=== PATIENT | male | born 1945 | race Caucasian/White ===

== ENCOUNTER → 2017-01-12 | Outpatient (CLI) | payer MEDICARE ==
--- NOTE | 2017-01-12 12:23 | CARD ---
APPROVED REPORT EXAM: Two-dimensional and M-mode echocardiogram with Doppler and color Doppler. Other Information Quality : GoodHR: 55bpm Rhythm : Bradycardia INDICATION Pre-Op Murmur RISK FACTORS Obesity 2D DIMENSIONS RVDd3.6 (2.9-3.5cm)Left Atrium(2D)4.2 (1.6-4.0cm) IVSd1.3 (0.7-1.1cm)Aortic Root(2D)3.1 (2.0-3.7cm) LVDd4.6 (3.9-5.9cm)LVOT Diameter2.6 (1.8-2.4cm) PWd1.4 (0.7-1.1cm)LVDs3.2 (2.5-4.0cm) FS (%) 30.9 %SV58.0 ml LVEF(%)58.6 (>50%) Aortic Valve AoV Peak Marty.249.1cm/sAoV VTI65.8cm AO Peak GR.24.8mmHgLVOT Peak Marty.92.0cm/s AO Mean GR.14mmHgAVA (VMAX)1.91cm2 AI P 1/2 Csnw688ku Mitral Valve MV E Sdkhgupj019.1cm/sMV DECEL EEVD719jw MV A Evmzdukt898.4cm/sE/A Ratio0.9 MV A Gihaqvpp977ye Pulmonary Valve PV Peak Hoxyyzyp66.0cm/s Tricuspid Valve TR P. Lutxabsu398wc/sTR Peak Gr.28mmHg Pulmonary Vein S1 Imdcnjuc36.6cm/sD2 Rpeaywiy31.4cm/s PVa ngbaebqt27nsxt LEFT VENTRICLE The left ventricle is normal size. There is mild concentric left ventricular hypertrophy. The left ve ntricular systolic function is normal. The Ejection Fraction is 60-65%. There is normal LV segmental wall motion. Transmitral Doppler flow pattern is Grade I-abnormal relaxation pattern. RIGHT VENTRICLE The right ventricle is normal size. There is normal right ventricular wall thickness. The right ventr icular systolic function is normal. ATRIA The left atrium size is normal. The right atrium size is normal. The interatrial septum is intact wit h no evidence for an atrial septal defect or patent foramen ovale as noted on 2-D or Doppler imaging. AORTIC VALVE The aortic valve is moderately sclerotic. The aortic valve is trileaflet. Doppler and Color Flow reve aled mild aortic regurgitation. There is borderline valvular aortic stenosis. MITRAL VALVE Mitral annular calcification is mild. The mitral valve leaflets are thickened. There is no evidence o f mitral valve prolapse. There is no mitral valve stenosis. Doppler and Color Flow revealed mild mitr al regurgitation. TRICUSPID VALVE Doppler and Color Flow revealed mild tricuspid regurgitation. The pulmonary artery systolic pressure is estimated at 31 mmHg. There is mild pulmonary hypertension. PULMONIC VALVE The pulmonary valve is not well visualized but appears to open adequately. Doppler and Color Flow rev ealed mild pulmonic valvular regurgitation. There is no pulmonic valvular stenosis by spectral Dopple r. GREAT VESSELS The aortic root is normal in size. The ascending aorta is normal in size. The pulmonary artery is nor mal. The IVC is normal in size and collapses >50% with inspiration. PERICARDIAL EFFUSION There is no evidence of significant pericardial effusion. Critical Notification Critical Value: No <Conclusion> The left ventricular systolic function is normal. The Ejection Fraction is 60-65%. There is normal LV segmental wall motion. Mild aortic regurgitation. Mild mitral regurgitation. Mild tricuspid regurgitation. The pulmonary artery systolic pressure is estimated at 31 mmHg. There is no evidence of significant pericardial effusion.
== END | disposition home or self-care (01) ==
LOC: ECHO 07:47
PROVIDERS: ATTEND Internal Medicine Cardiovascular Disease
DX: Z01.818 Encounter for other preprocedural examination (principal); I35.1 Nonrheumatic aortic (valve) insufficiency; I07.1 Rheumatic tricuspid insufficiency; I34.0 Nonrheumatic mitral (valve) insufficiency
CPT/HCPCS: 93306

== ENCOUNTER → 2019-01-21 | Outpatient (CLI) | payer MEDICARE ==
--- NOTE | 2019-01-21 09:39 | CARD ---
MR#: [id number] Date of Study: 01/21/2019 Ordering Physician: MATTEO GREGORIO, Referring Physician: MATTEO GREGORIO, Tech: Laure Victoria ROSALINA APPROVED REPORT EXAM: Two-dimensional and M-mode echocardiogram with Doppler and color Doppler. Other Information Quality : AverageHR: 53bpm Rhythm : Bradycardia INDICATION Murmur 2D DIMENSIONS RVDd3.6 (2.9-3.5cm)Left Atrium(2D)4.2 (1.6-4.0cm) IVSd1.5 (0.7-1.1cm)Aortic Root(2D)3.3 (2.0-3.7cm) LVDd4.9 (3.9-5.9cm)LVOT Diameter2.2 (1.8-2.4cm) PWd1.3 (0.7-1.1cm)LVDs2.6 (2.5-4.0cm) FS (%) 46.7 %SV86.7 ml LVEF(%)78.0 (>50%) M-Mode DIMENSIONS Left Atrium(MM)4.61 (2.5-4.0cm)Aortic Root3.21 (2.2-3.7cm) Aortic Valve AoV Peak Marty.276.4cm/sAoV VTI75.7cm AO Peak GR.30.6mmHgLVOT Peak Marty.82.2cm/s AO Mean GR.17mmHgAVA (VMAX)1.10cm2 DANY (VTI)1.38tp0WN P 1/2 Cxxk388tr Mitral Valve MV E Penojjfp30.2cm/sMV DECEL SCKI740ki MV A Asiovhxm528.2cm/sE/A Ratio0.9 Pulmonary Valve PV Peak Hjwmvzxj86.2cm/s Tricuspid Valve TR P. Oryfuoaa173xz/sRAP ZLXGKHEF1lyYs TR Peak Gr.17ejZaSYEV47reTb Pulmonary Vein S1 Rnkkvitj62.2cm/sD2 Hukrheqy47.0cm/s PVa ydkwmsrt911tjay LEFT VENTRICLE The left ventricle is normal size. There is mild to moderate concentric left ventricular hypertrophy. The left ventricular systolic function is normal. The Ejection Fraction is 65-70%. There is normal L V segmental wall motion. Transmitral Doppler flow pattern is Grade I-abnormal relaxation pattern. RIGHT VENTRICLE The right ventricle is borderline dilated. There is normal right ventricular wall thickness. The righ t ventricular systolic function is normal. ATRIA The left atrium is mildly dilated. The right atrium size is normal. The interatrial septum is intact with no evidence for an atrial septal defect or patent foramen ovale as noted on 2-D or Doppler imagi ng. AORTIC VALVE The aortic valve is trileaflet. The aortic valve is moderately calcified. Doppler and Color Flow reve aled mild aortic regurgitation. There is mild to moderate valvular aortic stenosis. Calculated aortic valve area is 1.3 cm2 with maximum pressure gradient of 31 mmHg and mean pressure gradient of 17 mmH g. MITRAL VALVE The mitral valve is normal in structure and function. There is no evidence of mitral valve prolapse. There is no mitral valve stenosis. Doppler and Color-flow revealed mild mitral regurgitation. TRICUSPID VALVE The tricuspid valve is normal in structure and function. Doppler and Color Flow revealed trace tricus pid regurgitation. The PA pressure was estimated at 33 mmHg. There is no tricuspid valve prolapse or vegetation. There is no tricuspid valve stenosis. PULMONIC VALVE The pulmonic valve is not well visualized. GREAT VESSELS The aortic root is normal in size. The ascending aorta is normal in size. The IVC is normal in size a nd collapses >50% with inspiration. PERICARDIAL EFFUSION There is no evidence of significant pericardial effusion. Critical Notification Critical Value: No <Conclusion> The left ventricular systolic function is normal. The Ejection Fraction is 65-70%. There is normal LV segmental wall motion. Transmitral Doppler flow pattern is Grade I-abnormal relaxation pattern. Mild to moderate valvular aortic stenosis with mean pressure gradient of 17 mmHg. Mild aortic regurgitation. Mild mitral regurgitation. Trace tricuspid regurgitation. The PA pressure was estimated at 33 mmHg. There is no evidence of significant pericardial effusion. Signed by : José Miguel Gatica, Electronically Approved : 01/21/2019 09:39:30
== END | disposition home or self-care (01) ==
LOC: ECHO 08:37
PROVIDERS: ATTEND Internal Medicine Cardiovascular Disease
DX: M79.89 Other specified soft tissue disorders (principal); I08.0 Rheumatic disorders of both mitral and aortic valves
CPT/HCPCS: 93306

== ENCOUNTER → 2019-01-22 | Outpatient (CLI) | payer MEDICARE, BC ==
--- NOTE | 2019-01-28 09:52 | RAD ---
MR#: [id number] Date of Study: 01/22/2019 Ordering Physician: MATTEO GREGORIO, Referring Physician: MATTEO GREGORIO, Tech: Fransico Bravo MBA, RDMS, RVT, RDCS, RTR APPROVED REPORT Patient Location: OUT-PATIENT Indications AAA Duplex Results A/PTransverseLongitudinal Proximal Aorta 2.6cm2.3cm Mid Aorta 2.6cm1.7cm Distal Aorta 2.4cm1.2cm Rt. Common Iliac Artery1.8cm Lt. Common Iliac Artery 1.2cm Findings Grayscale images of the abdominal aorta revealed grossly normal measurements as noted above. No signi ficant aneurysmal dilatation or occlusive plaque is noted. The bilateral common iliac arteries are not well visualized but there appears to be mild dilation of the right common iliac at approximately 1.8 cm. Critical Notification Critical Value: No <Conclusion> 1. No evidence of abdominal aortic aneurysm 2. Mild right common iliac artery dilation and 1.8 cm. Signed by : Temo Sharp, Electronically Approved : 01/28/2019 09:52:05
--- NOTE | 2019-01-28 09:54 | RAD ---
MR#: [id number] Date of Study: 01/22/2019 Ordering Physician: MATTEO GREGORIO, Referring Physician: MATTEO GREGORIO, Tech: Fransico Bravo MBA, RDMS, RVT, RDCS, RTR APPROVED REPORT Bilateral Lower Extremity Venous Study for DVT Patient Location: OUT-PATIENT Indications Lower Extremity Edema: Bilateral Vein Imaging (Right) CFV (R): Compressible SFJ (R): Compressible FEM (R): Compressible POP (R): Compressible DFV (R): Compressible PTV (R): Spontaneous GSV (R): Spontaneous Peroneals (R): Spontaneous Vein Imaging (Left) CFV (L): Compressible SFJ (L): Compressible FEM (L): Compressible POP (L): Compressible DFV (L): Compressible PTV (L): Spontaneous GSV (L): Spontaneous Peroneals (L): Spontaneous Doppler Evaluation (Right) CFV (R): Spontaneous POP (R):Spontaneous Doppler Evaluation (Left) CFV (L):Spontaneous POP (L):Spontaneous Findings Technically difficult study but within these limitations no obvious evidence of thrombus is identifie d. The common femoral veins bilaterally appear to be compressible on omalley scale images. The right superf icial femoral vein and popliteal veins were not well visualized. The left proximal superficial femora l vein appears to be compressible and the distal segment as well as the popliteal vein were not well visualized. On color Doppler there is normal flow with normal respirophasic flow in the veins bilaterally based o n spectral images. The below-knee veins were not well visualized but demonstrate spontaneous flow. Critical Notification Critical Value: No <Conclusion> 1. Technically difficult study but within these limitations no obvious evidence of DVT in the bilater al lower extremities Signed by : Temo Sharp, Electronically Approved : 01/28/2019 09:53:58
--- NOTE | 2019-01-28 18:10 | RAD ---
MR#: [id number] Date of Study: 01/22/2019 Ordering Physician: MATTEO GREGORIO, Referring Physician: MATTEO GREGORIO, Tech: Fransico Bravo, ABEL, RDMS, RVT, RDCS, RTR APPROVED REPORT Patient Location : OUT-PATIENT Indications Lower Extremity Edema : Bilateral Findings Grayscale images of the bilateral saphenofemoral junctions do not reveal any obvious evidence of thro mbus. The right great saphenous vein measures 6.5 mm and the left great saphenous vein measures 5.9 m m. The bilateral greater and lesser saphenous veins do not show any evidence of reflux. Critical Notification Critical Value: No <Conclusion> Negative for reflux bilaterally Signed by : Temo Sharp, Electronically Approved : 01/28/2019 18:09:52
== END | disposition home or self-care (01) ==
LOC: US 07:04
PROVIDERS: ATTEND Internal Medicine Cardiovascular Disease
DX: M79.89 Other specified soft tissue disorders (principal)
CPT/HCPCS: 76770; 93970

== ENCOUNTER 2019-06-29 09:17 | Emergency (ER) | payer MEDICARE, BC ==
[~2019-06-29] VITALS: Ht 172.7 cm; Wt 95.9 kg
[2019-06-29] MEDS ORDERED: IV NORMAL SALINE 1000ML BAG 1,000 ML IV SCH (09:37)
--- NOTE | 2019-06-29 09:41 | PHYS DOC ---
Past Medical History Past Medical History: Hypertension Additional Past Medical Histor: pt is a poor historian. He states he take a lot of meds but not sure what? Smoking Status: Never Smoker Alcohol Use: None Adult General Chief Complaint Chief Complaint: NAUSEA/VOMITING/DIARRHA HPI HPI Patient is a 73 year old [male] who presents with [nausea and weakness. Patient reports he woke up this morning feeling fine, however at 0700 he started to have some nausea, states no discomfort, states he does think he had been v omiting up some blood recently. States for her blood, no dark stools noted. Patient states he does not remember falling, however he does remark he has some discomfort in his back of his head where it is bleeding. Denies any recent illness, he denies weakness. Denies dizziness. STates the only medication he's taken this morning for his Synthroid and his Parkinson's medications.] Review of Systems Review of Systems Constitutional: Denies fever or chills [] Eyes: Denies change in visual acuity, redness, or eye pain [] HENT: Denies nasal congestion or sore throat [] Respiratory: Denies cough or shortness of breath [] Cardiovascular: No additional information not addressed in HPI [] GI: Denies abdominal pain, nausea,bloody stools or diarrhea, denies dark stools, STates one episode of bloody emesis this morning [] : Denies dysuria or hematuria [] Musculoskeletal: Denies back pain or joint pain [] Integument: Denies rash or skin lesions, other than laceration to posterior head [] Neurologic: Denies headache, focal weakness or sensory changes [] Endocrine: Denies polyuria or polydipsia [] All other systems were reviewed and found to be within normal limits, except as documented in this note. Current Medications Current Medications Current Medications Medications (Trade) Dose Ordered Sig/Cyndy Start Time Stop Time Status Last Admin Dose Admin Metoclopramide HCl (Reglan Vial) 10 mg 1X ONCE 06/29/19 10:00 06/29/19 10:01 DC 06/29/19 10:01 10 MG Sodium Chloride 1,000 ml @ 1,000 mls/hr Q1H 06/29/19 09:37 06/29/19 10:36 DC 06/29/19 10:17 1,000 MLS/HR Allergies Allergies Allergies Coded Allergies Type Severity Reaction Last Updated Verified escitalopram Allergy Unknown 06/29/19 Yes Physical Exam Physical Exam Constitutional: Well developed, well nourished, no acute distress, non-toxic appearance. [] HENT: Normocephalic, oropharynx moist, no oral exudates, nose normal. [] Eyes: PERRLA, EOMI, conjunctiva normal, no discharge. [] Neck: Normal range of motion, no tenderness, supple, no stridor. [] Cardiovascular:Heart rate regular Bradycardic rhythm, Grade 4/6 murmur [] Lungs & Thorax: Bilateral breath sounds clear to auscultation [] Abdomen: Bowel sounds normal, soft, no tenderness, no masses, no pulsatile masses. [] Skin: Warm, dry, no erythema, no rash. 2 cm laceration to right posterior scalp [] Back: No tenderness, no CVA tenderness. [] Extremities: No tenderness, no cyanosis, no clubbing, ROM intact, no edema. [] Neurologic: Alert and oriented X 3, normal motor function, normal sensory function, no focal deficits noted. [] Psychologic: Affect normal, judgement normal, mood normal. [] Current Patient Data Vital Signs Vital Signs Date Time Temp Pulse Resp B/P (MAP) Pulse Ox O2 Delivery O2 Flow Rate FiO2 06/29/19 13:03 53 16 141/65 (90) 98 Room Air 06/29/19 09:17 97.4 97.4 Lab Values Laboratory Tests Test 06/29/19 09:52 06/29/19 11:37 White Blood Count 7.6 x10^3/uL (4.0-11.0) Red Blood Count 4.63 x10^6/uL (4.30-5.70) Hemoglobin 14.2 g/dL (13.0-17.5) Hematocrit 42.1 % (39.0-53.0) Mean Corpuscular Volume 91 fL (79-100) Mean Corpuscular Hemoglobin 31 pg (25-35) Mean Corpuscular Hemoglobin Concent 34 g/dL (31-37) Red Cell Distribution Width 13.1 % (11.5-14.5) Platelet Count 167 x10^3/uL (140-400) Neutrophils (%) (Auto) 74 % (31-73) H Lymphocytes (%) (Auto) 15 % (24-48) L Monocytes (%) (Auto) 8 % (0-9) Eosinophils (%) (Auto) 2 % (0-3) Basophils (%) (Auto) 1 % (0-3) Neutrophils # (Auto) 5.6 x10^3/uL (1.8-7.7) Lymphocytes # (Auto) 1.1 x10^3/uL (1.0-4.8) Monocytes # (Auto) 0.6 x10^3/uL (0.0-1.1) Eosinophils # (Auto) 0.1 x10^3/uL (0.0-0.7) Basophils # (Auto) 0.1 x10^3/uL (0.0-0.2) Prothrombin Time 14.0 SEC (11.7-14.0) Prothrombin Time INR 1.1 (0.8-1.1) Sodium Level 139 mmol/L (136-145) Potassium Level 4.5 mmol/L (3.5-5.1) Chloride Level 103 mmol/L (98-107) Carbon Dioxide Level 25 mmol/L (21-32) Anion Gap 11 (6-14) Blood Urea Nitrogen 31 mg/dL (8-26) H Creatinine 1.8 mg/dL (0.7-1.3) H Estimated GFR (Cockcroft-Gault) 37.1 BUN/Creatinine Ratio 17 (6-20) Glucose Level 154 mg/dL (70-99) H Calcium Level 10.2 mg/dL (8.5-10.1) H Magnesium Level 2.0 mg/dL (1.8-2.4) Total Bilirubin 0.3 mg/dL (0.2-1.0) Aspartate Amino Transferase (AST) 21 U/L (15-37) Alanine Aminotransferase (ALT) < 6 U/L (16-63) L Alkaline Phosphatase 49 U/L (46-116) Troponin I Quantitative < 0.017 ng/mL (0.000-0.055) < 0.017 ng/mL (0.000-0.055) AE-Nta-L-Type Natriuretic Peptide 280 pg/mL (0-124) H Total Protein 7.0 g/dL (6.4-8.2) Albumin 3.4 g/dL (3.4-5.0) Albumin/Globulin Ratio 0.9 (1.0-1.7) L Laboratory Tests 06/29/19 09:52 Laboratory Tests 06/29/19 09:52 EKG EKG Sinus Bradycardic rhythm, no STElevation. Per Dr Angeles @ 0928[] Radiology/Procedures Radiology/Procedures Ventricular systems are prominent but symmetric consistent with some generalized cerebral atrophy. No midline shift is seen. There is no evidence of intracranial hemorrhage. No acute infarcts, masses or edema are evident. No abnormalities of seen at the orbits. The paranasal sinuses and mastoid air cells are clear. No acute skull abnormality is seen. IMPRESSION: Cerebral atrophy. No acute intracranial abnormality evident. CT cervical spine without contrast: Helical images were obtained through the cervical spine from skull base through the thoracic apices with no contrast administered. Reconstruction was performed in sagittal and coronal planes. The C1 ring is intact. The odontoid process is intact and normally centered between the lateral masses of C1. The vertebral bodies of the cervical spine are normally aligned anteriorly and posteriorly. No acute site of fracture or subluxation is seen. The posterior elements appear to be intact. There are noted to be degenerative facet changes at the right C3-4 level. The intravertebral discs show degenerative disc disease at the C6-7 level with some hypertrophic spurring which is most prominent at the anterior endplates. Remaining intervertebral discs are maintained. Prevertebral soft tissues are normal. There does not appear to be significant spinal stenosis. IMPRESSION: Degenerative facet changes at the right C3-4 level. No acute abnormality in the cervical spine. Exposure: One or more of the following individualized dose reduction techniques were utilized for this examination: 1. Automated exposure control 2. Adjustment of the mA and/or kV according to patient size 3. Use of iterative reconstruction technique. Electronically signed by: Kamryn Alejandre MD (06/29/2019 10:27 AM) [id number] [] Course & Med Decision Making Course & Med Decision Making Pertinent Labs and Imaging studies reviewed. (See chart for details) [Reviewed results with patient and family, patient and family and agreement to discharge home. Advised return precautions, if any change patient status, confusion, additional falls, family and agreement. Patient to follow up with primary care in the next couple days. ] Dragon Disclaimer Dragon Disclaimer This electronic medical record was generated, in whole or in part, using a voice recognition dictation system. Neweration Repair Lac Repair Indication: [Laceration] Procedure:The area was then Cleansed with hibicleans and peroxide. The laceration was closed with 5 tom The wound area was then dressed with gauze. Total repaired wound length: 4 cm. Other Items: [OTHER ITEMS] The patient tolerated the procedure well. Complications:[ no complications]. Departure Departure Impression: Primary Impression: Syncope Additional Impression: Laceration of head Disposition: HOME, SELF-CARE Condition: STABLE Referrals: SUHAIL GARCIA (PCP) Patient Instructions: Syncope Additional Instructions: As we discussed, keep your head wound clean and dry today. Tomorrow he may wash her hair is normal. Have the tom removed in 7-10 days. This can be done in your primary care provider office. Continue to give him brain rest for a couple days as we discussed, no intense activity, no intense videos, may read easy- reading. This is all in efforts to reduce likelihood of future headaches related to head injuries. After 4 or 5 days he may resume normal activities. Problem Qualifiers Primary Impression: Syncope Syncope type: unspecified Qualified Codes: R55 - Syncope and collapse Additional Impression: Laceration of head Encounter type: initial encounter Location of open wound of head: scalp Foreign body presence: without foreign body Qualified Codes: S01.01XA - Laceration without foreign body of scalp, initial encounter COLT CRYSTAL APRN Jun 29, 2019 09:41
[2019-06-29] MEDS ORDERED: METOCLOPRAMIDE HCL 10 MG/2 ML VIAL. IVP ONE (10:00)
[2019-06-29 10:11] LABS: BASO # 0.1 x10^3/uL (0.0-0.2); BASO % 1 % (0-3); EOS # 0.1 x10^3/uL (0.0-0.7); EOS % 2 % (0-3); HEMATOCRIT 42.1 % (39.0-53.0); HEMOGLOBIN 14.2 g/dL (13.0-17.5); LYMPH # 1.1 x10^3/uL (1.0-4.8); LYMPH % 15 % (24-48); MEAN CORPUSCULAR HEMOGLOBIN 31 pg (25-35); MEAN CORPUSCULAR HGB CONC 34 g/dL (31-37); MEAN CORPUSCULAR VOLUME 91 fL (79-100); MONO # 0.6 x10^3/uL (0.0-1.1); MONO % 8 % (0-9); NEUT # 5.6 x10^3/uL (1.8-7.7); NEUT % 74 % (31-73); PLATELET COUNT 167 x10^3/uL (140-400); RED BLOOD COUNT 4.63 x10^6/uL (4.30-5.70); RED CELL DISTRIBUTION WIDTH 13.1 % (11.5-14.5); WHITE BLOOD COUNT 7.6 x10^3/uL (4.0-11.0)
[2019-06-29 10:17] LABS: ANION GAP 11 (6-14); BLOOD UREA NITROGEN 31 mg/dL (8-26); BUN/CREATININE RATIO 17 (6-20); CALCIUM 10.2 mg/dL (8.5-10.1); CARBON DIOXIDE 25 mmol/L (21-32); CHLORIDE 103 mmol/L (98-107); CREATININE 1.8 mg/dL (0.7-1.3); GFR 37.1; GLUCOSE 154 mg/dL (70-99); POTASSIUM 4.5 mmol/L (3.5-5.1); SODIUM 139 mmol/L (136-145)
--- NOTE | 2019-06-29 10:17 | RAD ---
Examination: PORTABLE CHEST 1V History: Syncope Comparison/Correlation: None Findings: Portable upright frontal view of chest was obtained. Heart size and pulmonary vasculature are normal. Calcified granulomas are present. Tortuosity of the thoracic aorta is present. No pneumothorax or infiltrate. Bony structures are unremarkable. Impression: No active disease. Electronically signed by: Yosef Foley MD (06/29/2019 10:14 AM) [id number]
[2019-06-29 10:22] LABS: ALBUMIN 3.4 g/dL (3.4-5.0); ALBUMIN/GLOBULIN RATIO 0.9 (1.0-1.7); ALK PHOS 49 U/L (46-116); AST (SGOT) 21 U/L (15-37); TOTAL BILIRUBIN 0.3 mg/dL (0.2-1.0)
[2019-06-29 10:27] LABS: ALT (SGPT) < 6 U/L (16-63)
--- NOTE | 2019-06-29 10:30 | RAD ---
CT head without contrast: Reason for examination: Syncope. Axial images were obtained through the brain. No contrast was administered. Ventricular systems are prominent but symmetric consistent with some generalized cerebral atrophy. No midline shift is seen. There is no evidence of intracranial hemorrhage. No acute infarcts, masses or edema are evident. No abnormalities of seen at the orbits. The paranasal sinuses and mastoid air cells are clear. No acute skull abnormality is seen. IMPRESSION: Cerebral atrophy. No acute intracranial abnormality evident. CT cervical spine without contrast: Helical images were obtained through the cervical spine from skull base through the thoracic apices with no contrast administered. Reconstruction was performed in sagittal and coronal planes. The C1 ring is intact. The odontoid process is intact and normally centered between the lateral masses of C1. The vertebral bodies of the cervical spine are normally aligned anteriorly and posteriorly. No acute site of fracture or subluxation is seen. The posterior elements appear to be intact. There are noted to be degenerative facet changes at the right C3-4 level. The intravertebral discs show degenerative disc disease at the C6-7 level with some hypertrophic spurring which is most prominent at the anterior endplates. Remaining intervertebral discs are maintained. Prevertebral soft tissues are normal. There does not appear to be significant spinal stenosis. IMPRESSION: Degenerative facet changes at the right C3-4 level. No acute abnormality in the cervical spine. Exposure: One or more of the following individualized dose reduction techniques were utilized for this examination: 1. Automated exposure control 2. Adjustment of the mA and/or kV according to patient size 3. Use of iterative reconstruction technique. Electronically signed by: Kamryn Alejandre MD (06/29/2019 10:27 AM) [id number]
[2019-06-29 13:03] VITALS: BP 141/65
--- NOTE | 2019-06-29 23:58 | EKG ---
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
== END 2019-06-29 13:00 | disposition home or self-care (01) ==
LOC: ER 09:17
DX: S01.01XA Laceration without foreign body of scalp, initial encounter (principal); R55 Syncope and collapse; R11.0 Nausea; R53.1 Weakness; I10 Essential (primary) hypertension; Z88.8 Allergy status to other drugs, medicaments and biological substances; W18.39XA Other fall on same level, initial encounter; Y93.89 Activity, other specified; Y92.89 Other specified places as the place of occurrence of the external cause; Y99.8 Other external cause status
CPT/HCPCS: 12002; 36415; 70450; 71045; 72125; 80053; 83735; 83880; 84484; 85025; 85610; 93005; 96361; 96374; 99285; J2765; J7030

== ENCOUNTER 2019-09-17 09:30 | Inpatient (IN) | payer MEDICARE, BC ==
[~2019-09-17] VITALS: Ht 172.7 cm; Wt 93.3 kg
[2019-09-17] MEDS ORDERED: ONDANSETRON PF 4 MG/2 ML VIAL. IVP ONE (09:45)
[2019-09-17 09:57] LABS: BASO # 0.1 x10^3/uL (0.0-0.2); BASO % 1 % (0-3); EOS # 0.4 x10^3/uL (0.0-0.7); EOS % 4 % (0-3); HEMATOCRIT 44.5 % (39.0-53.0); HEMOGLOBIN 15.2 g/dL (13.0-17.5); LYMPH % 21 % (24-48); MEAN CORPUSCULAR HEMOGLOBIN 31 pg (25-35); MEAN CORPUSCULAR HGB CONC 34 g/dL (31-37); MEAN CORPUSCULAR VOLUME 90 fL (79-100); MONO # 1.3 x10^3/uL (0.0-1.1); MONO % 14 % (0-9); NEUT # 5.8 x10^3/uL (1.8-7.7); NEUT % 61 % (31-73); PLATELET COUNT 230 x10^3/uL (140-400); RED BLOOD COUNT 4.94 x10^6/uL (4.30-5.70); WHITE BLOOD COUNT 9.6 x10^3/uL (4.0-11.0)
[2019-09-17] MEDS ORDERED: METOCLOPRAMIDE HCL 10 MG/2 ML VIAL. IVP ONE (10:00)
[2019-09-17 10:08] LABS: PROTHROMBIN TIME PATIENT 12.9 SEC (11.7-14.0)
[2019-09-17 10:10] LABS: CALCIUM 9.8 mg/dL (8.5-10.1); CREATININE 1.7 mg/dL (0.7-1.3); GFR 39.5; POTASSIUM 4.4 mmol/L (3.5-5.1)
[2019-09-17 10:15] LABS: ALBUMIN 3.3 g/dL (3.4-5.0); ALBUMIN/GLOBULIN RATIO 0.8 (1.0-1.7); TOTAL BILIRUBIN 0.4 mg/dL (0.2-1.0); TOTAL PROTEIN 7.4 g/dL (6.4-8.2)
[2019-09-17] MEDS ORDERED: GLUCAGON,HUMAN RECOMBINANT 1 MG/ML VIAL. IV ONE (10:15)
[2019-09-17 10:21] LABS: FREE T4 1.51 ng/dL (0.76-1.46); THYROID STIM HORMONE (TSH) 2.838 uIU/mL (0.358-3.74)
--- NOTE | 2019-09-17 10:39 | RAD ---
EXAM: Chest, single view. HISTORY: Shortness of air. COMPARISON: 06/29/2019 FINDINGS: A frontal view of the chest obtained. There is no infiltrate, pleural effusion or pneumothorax. There is linear atelectasis or scarring within the left mid thorax. There is a calcified granuloma within the left upper lobe. IMPRESSION: No acute pulmonary finding. Electronically signed by: Shelbi Wilson MD (09/17/2019 10:36 AM) [id number]
--- NOTE | 2019-09-17 12:22 | RAD ---
EXAM: Head, cervical spine and thoracic spine CT without contrast. HISTORY: Fall. TECHNIQUE: Computed tomographic images of the head, cervical spine and thoracic spine were obtained without contrast. *One or more of the following individualized dose reduction techniques were utilized for this examination: 1. Automated exposure control. 2. Adjustment of the mA and/or kV according to patient size. 3. Use of iterative reconstruction technique. COMPARISON: 06/29/2019. FINDINGS: Head: There is no intracranial hemorrhage. There is no mass effect or midline shift. There is no hydrocephalus. There is cerebral volume loss. There are subtle areas of hypodensity within the cerebral white matter, likely due to chronic small vessel disease. No suspicious calvarial lesion is seen. There is orbital band keratopathy. The orbits are otherwise unremarkable. The visualized paranasal sinuses are clear. The mastoid air cells are clear. Cervical spine: There is no significant listhesis. There is degenerative endplate remodeling with disc space narrowing and osteophytosis at C6-C7. There is multilevel facet arthropathy. No fracture is seen. The combination of degenerative changes results in moderate to severe right foraminal stenosis at C3-C4 and mild bilateral foraminal stenosis at C6-C7. There is a tiny suspected cyst or benign nodule within the right thyroid lobe. The lung apices are unremarkable. Thoracic spine: There is no acute or subacute fracture. There is degenerative endplate remodeling and anterior bridging and partially bridging osteophytes at the mid and lower thoracic levels. There are several endplate Schmorl's nodes. There are few small thoracic disc protrusions. This includes a left paracentral disc protrusion at T4-T5, posterior central disc protrusion at C5-C6, and broad-based posterior disc protrusion at T6-T7. There are multiple disc bulges. There is no significant stenosis. There is mild emphysema. There is ectasia of the aortic arch. There are calcified granulomas within the left hilum. There is coronary artery atherosclerosis. There are bilateral adrenal nodules, largest of which involves the left lateral limb measuring 2.7 cm. IMPRESSION: 1. No acute intracranial finding or evidence of acute cervical or thoracic spine trauma. 2. Mild cerebral volume loss and bilateral cerebral white changes, likely due to chronic small vessel disease. 3. Multilevel degenerative change throughout the cervical and thoracic spine, described in detail above. 4. Multiple bilateral adrenal nodules, the largest of which is seen along the lateral limb of the left adrenal gland measuring 2.7 cm. The attenuation of these lesions favors benign adenomas. Electronically signed by: Shelbi Wilson MD (09/17/2019 12:19 PM) [id number]
--- NOTE | 2019-09-17 13:07 | PHYS DOC ---
Past Medical History Past Medical History: Cancer, Hypertension, Hypothyroid Additional Past Medical Histor: parkinsons; skin CA Past Surgical History: Other Additional Past Surgical Histo: vasectomy; inguinal hernia; tongue clipped; Smoking Status: Never Smoker Alcohol Use: None General Adult EDM: Chief Complaint: SYNCOPE HPI: HPI: Patient is a 74 year old male who was brought here by EMS from home due to nausea vomiting, dizziness, found out in the bathroom by his this morning. Patient said he went to bathroom this morning and then he passed out on the floor. EMS were called, and he said he was pale with diaphoresis, feel nauseous and vomited multiple times. Patient said he was seen here in June for the same problem, he passed out and hit his head, with some laceration on his scalp. Patient was not admitted to hospital for further evaluation then. Patient said he did take all his morning medication today. Patient is on 100 mg metoprolol daily and 100 mg of amiodarone daily. Patient said he had lost about 25 pounds since March last year. At this time patient denies any chest pain, no trouble breathing. Patient complained of upper back pain. He denies any back pain, no hip pain, no extremity pain. Review of Systems: Review of Systems: Constitutional: Denies fever or chills. [] Eyes: Denies change in visual acuity. [] HENT: Denies nasal congestion or sore throat. [] Respiratory: Denies cough or shortness of breath. [] Cardiovascular: Denies chest pain or edema. [] GI: Denies abdominal pain, nausea, vomiting, bloody stools or diarrhea. [] : Denies dysuria. [] Musculoskeletal: Denies back pain or joint pain. Positive for upper back pain Integument: Denies rash. [] Neurologic: Denies headache, focal weakness or sensory changes. Positive for syncope, dizziness Endocrine: Denies polyuria or polydipsia. [] Lymphatic: Denies swollen glands. [] Psychiatric: Denies depression or anxiety. [] Heart Score: Risk Factors: Risk Factors: DM, Current or recent (<one month) smoker, HTN, HLP, family history of CAD, obesity. Risk Scores: Score 0 - 3: 2.5% MACE over next 6 weeks - Discharge Home Score 4 - 6: 20.3% MACE over next 6 weeks - Admit for Clinical Observation Score 7 - 10: 72.7% MACE over next 6 weeks - Early Invasive Strategies Current Medications: Current Medications Medications (Trade) Dose Ordered Sig/Cyndy Start Time Stop Time Status Last Admin Dose Admin Glucagon (Glucagen) 3 mg 1X ONCE 09/17/19 10:15 09/17/19 10:16 DC 09/17/19 10:24 3 MG Metoclopramide HCl (Reglan Vial) 10 mg 1X ONCE 09/17/19 10:00 09/17/19 10:02 DC 09/17/19 10:13 10 MG Ondansetron HCl (Zofran) 4 mg 1X ONCE 09/17/19 09:45 09/17/19 09:46 DC 09/17/19 09:45 4 MG Allergies: Allergies: Allergies Coded Allergies Type Severity Reaction Last Updated Verified escitalopram Allergy Unknown 06/29/19 Yes Physical Exam: PE: Constitutional: Well developed, well nourished, in moderate distress, non-toxic appearance. [] HENT: Normocephalic, atraumatic, bilateral external ears normal, oropharynx moist, no oral exudates, nose normal. [] Eyes: PERRLA, EOMI, conjunctiva normal, no discharge. [] Neck: Normal range of motion, no tenderness, supple, no stridor. [] Cardiovascular:sinus bradycardia, no murmur [] Lungs & Thorax: Bilateral breath sounds clear to auscultation [] Abdomen: Bowel sounds normal, soft, no tenderness, no masses, no pulsatile masses. [] Skin: Warm, dry, pale, diaphoresis... Back: There is skin contusion on lower thoracic area, tender to palpation, no CVA tenderness. [] Extremities: No tenderness, no cyanosis, no clubbing, ROM intact, no edema. [] Neurologic: Alert and oriented X 3, normal motor function, normal sensory function, no focal deficits noted. Psychologic: Affect normal, judgement normal, mood normal. [] Current Patient Data: Labs: Laboratory Tests Test 09/17/19 09:40 White Blood Count 9.6 x10^3/uL (4.0-11.0) Red Blood Count 4.94 x10^6/uL (4.30-5.70) Hemoglobin 15.2 g/dL (13.0-17.5) Hematocrit 44.5 % (39.0-53.0) Mean Corpuscular Volume 90 fL (79-100) Mean Corpuscular Hemoglobin 31 pg (25-35) Mean Corpuscular Hemoglobin Concent 34 g/dL (31-37) Red Cell Distribution Width 13.0 % (11.5-14.5) Platelet Count 230 x10^3/uL (140-400) Neutrophils (%) (Auto) 61 % (31-73) Lymphocytes (%) (Auto) 21 % (24-48) L Monocytes (%) (Auto) 14 % (0-9) H Eosinophils (%) (Auto) 4 % (0-3) H Basophils (%) (Auto) 1 % (0-3) Neutrophils # (Auto) 5.8 x10^3/uL (1.8-7.7) Lymphocytes # (Auto) 2.0 x10^3/uL (1.0-4.8) Monocytes # (Auto) 1.3 x10^3/uL (0.0-1.1) H Eosinophils # (Auto) 0.4 x10^3/uL (0.0-0.7) Basophils # (Auto) 0.1 x10^3/uL (0.0-0.2) Prothrombin Time 12.9 SEC (11.7-14.0) Prothrombin Time INR 1.0 (0.8-1.1) Activated Partial Thromboplast Time 26 SEC (24-38) Sodium Level 136 mmol/L (136-145) Potassium Level 4.4 mmol/L (3.5-5.1) Chloride Level 99 mmol/L (98-107) Carbon Dioxide Level 26 mmol/L (21-32) Anion Gap 11 (6-14) Blood Urea Nitrogen 26 mg/dL (8-26) Creatinine 1.7 mg/dL (0.7-1.3) H Estimated GFR (Cockcroft-Gault) 39.5 BUN/Creatinine Ratio 15 (6-20) Glucose Level 140 mg/dL (70-99) H Calcium Level 9.8 mg/dL (8.5-10.1) Magnesium Level 2.0 mg/dL (1.8-2.4) Total Bilirubin 0.4 mg/dL (0.2-1.0) Aspartate Amino Transferase (AST) 20 U/L (15-37) Alanine Aminotransferase (ALT) 7 U/L (16-63) L Alkaline Phosphatase 54 U/L (46-116) Troponin I Quantitative < 0.017 ng/mL (0.000-0.055) GR-[id number]-Type Natriuretic Peptide 236 pg/mL (0-449) Total Protein 7.4 g/dL (6.4-8.2) Albumin 3.3 g/dL (3.4-5.0) L Albumin/Globulin Ratio 0.8 (1.0-1.7) L Lipase 205 U/L (73-393) Thyroid Stimulating Hormone (TSH) 2.838 uIU/mL (0.358-3.74) Free Thyroxine 1.51 ng/dL (0.76-1.46) H Laboratory Tests 09/17/19 09:40 Laboratory Tests 09/17/19 09:40 Vital Signs: Vital Signs Date Time Temp Pulse Resp B/P (MAP) Pulse Ox O2 Delivery O2 Flow Rate FiO2 09/17/19 11:03 50 16 156/71 (99) 100 Room Air 09/17/19 09:30 97.6 97.6 EKG: EKG: EKG was done at 936, read by this physician, heart rate of 44 bpm, sinus bradycardia, leftward axis, no ST segment elevation. [ Radiology/Procedures: Radiology/Procedures: [][facility] [address] [place] [address] IMAGING REPORT Signed PATIENT: MARYLIN LEE ACCOUNT: [id number] : 1945 LOCATION: ER AGE: 74 SEX: M EXAM STATUS: REG ER ORD. PHYSICIAN: NENO BRENNER DO REASON: SYNCOPE, PASSED OUT ON FLOOR, HIT HEAD, CHÁVEZ, NECK PAIN PROCEDURE: CT HEAD AND CERVICAL SPINE WO EXAM: Head, cervical spine and thoracic spine CT without contrast. HISTORY: Fall. TECHNIQUE: Computed tomographic images of the head, cervical spine and thoracic spine were obtained without contrast. *One or more of the following individualized dose reduction techniques were utilized for this examination: 1. Automated exposure control. 2. Adjustment of the mA and/or kV according to patient size. 3. Use of iterative reconstruction technique. COMPARISON: 06/29/2019. FINDINGS: Head: There is no intracranial hemorrhage. There is no mass effect or midline shift. There is no hydrocephalus. There is cerebral volume loss. There are subtle areas of hypodensity within the cerebral white matter, likely due to chronic small vessel disease. No suspicious calvarial lesion is seen. There is orbital band keratopathy. The orbits are otherwise unremarkable. The visualized paranasal sinuses are clear. The mastoid air cells are clear. Cervical spine: There is no significant listhesis. There is degenerative endplate remodeling with disc space narrowing and osteophytosis at C6-C7. There is multilevel facet arthropathy. No fracture is seen. The combination of degenerative changes results in moderate to severe right foraminal stenosis at C3-C4 and mild bilateral foraminal stenosis at C6-C7. There is a tiny suspected cyst or benign nodule within the right thyroid lobe. The lung apices are unremarkable. Thoracic spine: There is no acute or subacute fracture. There is degenerative endplate remodeling and anterior bridging and partially bridging osteophytes at the mid and lower thoracic levels. There are several endplate Schmorl's nodes. There are few small thoracic disc protrusions. This includes a left paracentral disc protrusion at T4-T5, posterior central disc protrusion at C5-C6, and broad-based posterior disc protrusion at T6-T7. There are multiple disc bulges. There is no significant stenosis. There is mild emphysema. There is ectasia of the aortic arch. There are calcified granulomas within the left hilum. There is coronary artery atherosclerosis. There are bilateral adrenal nodules, largest of which involves the left lateral limb measuring 2.7 cm. IMPRESSION: 1. No acute intracranial finding or evidence of acute cervical or thoracic spine trauma. 2. Mild cerebral volume loss and bilateral cerebral white changes, likely due to chronic small vessel disease. 3. Multilevel degenerative change throughout the cervical and thoracic spine, described in detail above. 4. Multiple bilateral adrenal nodules, the largest of which is seen along the lateral limb of the left adrenal gland measuring 2.7 cm. The attenuation of these lesions favors benign adenomas. Electronically signed by: Shelbi Rod MD (09/17/2019 12:19 PM) [id number] DICTATED and SIGNED BY: SHELBI ROD MD DATE: 09/17/19 1219 [facility] [address] [place] [address] IMAGING REPORT Signed PATIENT: MARYLIN LEE ACCOUNT: [id number] : 1945 LOCATION: ER AGE: 74 SEX: M EXAM STATUS: PRE ER ORD. PHYSICIAN: NENO BRENNER DO REASON: soa PROCEDURE: PORTABLE CHEST 1V EXAM: Chest, single view. HISTORY: Shortness of air. COMPARISON: 06/29/2019 FINDINGS: A frontal view of the chest obtained. There is no infiltrate, pleural effusion or pneumothorax. There is linear atelectasis or scarring within the left mid thorax. There is a calcified granuloma within the left upper lobe. IMPRESSION: No acute pulmonary finding. Electronically signed by: Shelbi Rod MD (09/17/2019 10:36 AM) [id number] DICTATED and SIGNED BY: SHELBI ROD MD DATE: 09/17/19 1036 Course & Med Decision Making: Course & Med Decision Making Pertinent Labs and Imaging studies reviewed. (See chart for details) Patient is a 74-year-old male who was evaluated in ER due to syncopal episode. Patient had same syncopal episode in June, he was not admitted to hospital for further evaluation. Patient had not seen a doctor about that episode since. Patient heart rate was slow between 42 to 45 beats per minutes on the monitor. Patient is on 100 mg metoprolol p.o. daily. This might be the effect of his medication. Patient was given 3 mg of glucagon IV due to suspected beta-anika negative effect. His heart rate improved to about 50 to 58 bpm. Patient felt much better. Patient will be admitted to hospital for further evaluation and treatment of her syncopal episode. Dragon Disclaimer: Dragon Disclaimer: This electronic medical record was generated, in whole or in part, using a voice recognition dictation system. Departure Departure Impression: Primary Impression: Syncope and collapse Additional Impressions: Sinus bradycardia Contusion, back Disposition: ADMITTED INPATIENT Admitting Physician: ANASTASIA (DR. POWELL) Condition: STABLE Referrals: SUHAIL GARCIA (PCP) NENO BRENNER DO September 17, 2019 13:07
[2019-09-17 13:16] LABS: BILIRUBIN,URINE NEGATIVE (NEG); CLARITY,URINE CLEAR; COLOR,URINE YELLOW; NITRITE,URINE NEGATIVE (NEG); PROTEIN,URINE NEGATIVE (NEG-TRACE); UROBILINOGEN,URINE 0.2 mg/dL (0.2 mg/dL)
[2019-09-17 13:23] LABS: BACTERIA,URINE 0 /HPF (0-FEW); RBC,URINE 0 /HPF (0-2); SQUAMOUS EPITHELIAL CELL,UR OCC /LPF; WBC,URINE 0 /HPF (0-4)
--- NOTE | 2019-09-17 13:24 | EKG ---
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
[2019-09-17] MEDS ORDERED: ONDANSETRON PF 4 MG/2 ML VIAL. IV PRN (13:30)
[2019-09-17 15:00] VITALS: BP 129/75
--- NOTE | 2019-09-17 15:14 | PDOC2 ---
ROSAURA CALHOUN YARN WASHER 09/17/19 1514: CARDIAC CONSULT DATE OF CONSULT Date of Consult DATE: 09/17/19 TIME: 15:03 REASON FOR CONSULT Reason for Consult: syncope, sinus bradycardia REFERRING PHYSICIAN Referring Physician: Daniel SOURCE Source: Chart review, Patient HISTORY OF PRESENT ILLNESS HISTORY OF PRESENT ILLNESS This is a pleasant 74 yo male admitted for complains of abdominal pain and passing out. Reports that he has been having crampy pain mainly above his left iliac crest then radiates mid abd and back and left groin. His abd discomfort has been going on in the last 3 weeks on and off. When it intensify he rates at 8 in 0-10 scale. No associated diarrhea but eventually nauseated this morning for the first time. He went to the bathroom trying to vomit and tried to sit down, then he passed out. No associated CHÁVEZ, palpitations or focal neuro deficits. No lost of bowel and bladder. He did felt hot this morning but no recorded fever. was in the room with him and unclear how long he was uncon scious. He did fall with syncope but no apparent injury. No past hx of CVA nor VTE or seizures.. No recent falls or injury and his hydration is adequate. No chest pain, SOA. He does have hx of constipation but did have BM this morning and it was soft. He takes amiodarone and metoprolol for PAFIB. He does have parkinsons treated with sinemet. He uses cane when he ambulates. Denies any urinary burning or any recent UTI. Denies any recent antibiotic treatment. PAST MEDICAL HISTORY Cardiovascular: AFIB (paroxysmal), HTN, Hyperlipidemia, Valve insufficiency, Other (PAD-Mild right common iliac artery dilation and 1.8 cm via sono 01/2019) Pulmonary: No pertinent hx CENTRAL NERVOUS SYSTEM: Other (parkinsons) GI: GERD Hepatobiliary: No pertinent hx Psych: Anxiety, Bipolar Musculoskeletal: Osteoarthritis Renal/: Chronic renal insuff (CKD3), Benign prostatic enlarg. Endocrine: Hypothyroidism, Other (hyperaldosteronism) PAST SURGICAL HISTORY Past Surgical History: Hernia Repair (inguinal), Other (vasectomy; skin CA removal) FAMILY HISTORY Family History: Heart Disease SOCIAL HISTORY Smoke: Quit ALCOHOL: none Drugs: None Lives: with Family CURRENT MEDICATIONS CURRENT MEDICATIONS Current Medications Medications (Trade) Dose Ordered Sig/Cyndy Route PRN Reason Start Time Stop Time Status Last Admin Dose Admin Ondansetron HCl (Zofran) 4 mg 1X ONCE IVP 09/17/19 09:45 09/17/19 09:46 DC 09/17/19 09:45 Metoclopramide HCl (Reglan Vial) 10 mg 1X ONCE IVP 09/17/19 10:00 09/17/19 10:02 DC 09/17/19 10:13 Glucagon (Glucagen) 3 mg 1X ONCE IV 09/17/19 10:15 09/17/19 10:16 DC 09/17/19 10:24 ALLERGIES ALLERGIES: Coded Allergies: escitalopram (Verified Allergy, Unknown, 06/29/19) ROS Review of System 14 point ROS evlauated with pertinent positives noted per HPI PHYSICAL EXAM General: Alert, Oriented X3, Cooperative, No acute distress HEENT: Atraumatic, Mucous membr. moist/pink Lungs: Clear to auscultation, Normal air movement Heart: Regular rate (SR/SB), Normal S1, Normal S2, Other (3/6 systolic murmur loudest to JERMAINE border) Abdomen: Soft, Other (slight tenderness to RLQ) Extremities: No cyanosis, No edema Skin: No breakdown, No significant lesion Neuro: Normal speech, Sensation intact Psych/Mental Status: Mental status NL, Mood NL MUSCULOSKELETAL: Osteoarthritic changes both hands VITALS/I&O VITALS/I&O: Vital Signs Date Time Temp Pulse Resp B/P (MAP) Pulse Ox O2 Delivery O2 Flow Rate FiO2 09/17/19 11:03 50 16 156/71 (99) 100 Room Air 09/17/19 09:30 97.6 97.6 LABS Lab: Laboratory Tests Test 09/17/19 09:40 09/17/19 13:05 White Blood Count 9.6 x10^3/uL (4.0-11.0) Red Blood Count 4.94 x10^6/uL (4.30-5.70) Hemoglobin 15.2 g/dL (13.0-17.5) Hematocrit 44.5 % (39.0-53.0) Mean Corpuscular Volume 90 fL (79-100) Mean Corpuscular Hemoglobin 31 pg (25-35) Mean Corpuscular Hemoglobin Concent 34 g/dL (31-37) Red Cell Distribution Width 13.0 % (11.5-14.5) Platelet Count 230 x10^3/uL (140-400) Neutrophils (%) (Auto) 61 % (31-73) Lymphocytes (%) (Auto) 21 % (24-48) L Monocytes (%) (Auto) 14 % (0-9) H Eosinophils (%) (Auto) 4 % (0-3) H Basophils (%) (Auto) 1 % (0-3) Neutrophils # (Auto) 5.8 x10^3/uL (1.8-7.7) Lymphocytes # (Auto) 2.0 x10^3/uL (1.0-4.8) Monocytes # (Auto) 1.3 x10^3/uL (0.0-1.1) H Eosinophils # (Auto) 0.4 x10^3/uL (0.0-0.7) Basophils # (Auto) 0.1 x10^3/uL (0.0-0.2) Prothrombin Time 12.9 SEC (11.7-14.0) Prothrombin Time INR 1.0 (0.8-1.1) Activated Partial Thromboplast Time 26 SEC (24-38) Sodium Level 136 mmol/L (136-145) Potassium Level 4.4 mmol/L (3.5-5.1) Chloride Level 99 mmol/L (98-107) Carbon Dioxide Level 26 mmol/L (21-32) Anion Gap 11 (6-14) Blood Urea Nitrogen 26 mg/dL (8-26) Creatinine 1.7 mg/dL (0.7-1.3) H Estimated GFR (Cockcroft-Gault) 39.5 BUN/Creatinine Ratio 15 (6-20) Glucose Level 140 mg/dL (70-99) H Calcium Level 9.8 mg/dL (8.5-10.1) Magnesium Level 2.0 mg/dL (1.8-2.4) Total Bilirubin 0.4 mg/dL (0.2-1.0) Aspartate Amino Transferase (AST) 20 U/L (15-37) Alanine Aminotransferase (ALT) 7 U/L (16-63) L Alkaline Phosphatase 54 U/L (46-116) Troponin I Quantitative < 0.017 ng/mL (0.000-0.055) GQ-Zdc-N-Type Natriuretic Peptide 236 pg/mL (0-449) Total Protein 7.4 g/dL (6.4-8.2) Albumin 3.3 g/dL (3.4-5.0) L Albumin/Globulin Ratio 0.8 (1.0-1.7) L Lipase 205 U/L (73-393) Thyroid Stimulating Hormone (TSH) 2.838 uIU/mL (0.358-3.74) Free Thyroxine 1.51 ng/dL (0.76-1.46) H Urine Collection Type Void Urine Color Yellow Urine Clarity Clear Urine pH 7.0 (<5.0-8.0) Urine Specific [place] 1.020 (1.000-1.030) Urine Protein Negative mg/dL (NEG-TRACE) Urine Glucose (UA) Negative mg/dL (NEG) Urine Ketones (Stick) Trace mg/dL (NEG) Urine Blood Negative (NEG) Urine Nitrite Negative (NEG) Urine Bilirubin Negative (NEG) Urine Urobilinogen Dipstick 0.2 mg/dL (0.2 mg/dL) Urine Leukocyte Esterase Negative (NEG) Urine RBC 0 /HPF (0-2) Urine WBC 0 /HPF (0-4) Urine Squamous Epithelial Cells Occ /LPF Urine Bacteria 0 /HPF (0-FEW) Laboratory Tests 09/17/19 09:40 Laboratory Tests 09/17/19 09:40 ECHOCARDIOGRAM ECHOCARDIOGRAM <Conclusion> The left ventricular systolic function is normal. The Ejection Fraction is 65-70%. There is normal LV segmental wall motion. Transmitral Doppler flow pattern is Grade I-abnormal relaxation pattern. Mild to moderate valvular aortic stenosis with mean pressure gradient of 17 mmHg . Mild aortic regurgitation. Mild mitral regurgitation. Trace tricuspid regurgitation. The PA pressure was estimated at 33 mmHg. There is no evidence of significant pericardial effusion. DATE: 01/21/1934 ASSESSMENT/PLAN ASSESSMENT/PLAN 1. Syncope: likely vasovagal. no orthostasis 2. Sinus bradycardia: lowest in the 40s but no blocks nor pauses so far. Likely associated with 100 mg of toprol 3. Prolonged QT: at 532 but QTc is 455 4. Parkinsons 5. PAFIB: SR/SB 6. HLP 7. HTN: controlled. 8. Hypothyrodism: on replacement 9. Valvular insufficiency: mild to mod , mild AI/MR 10. RLQ Abdominal pain/nausea: defer to PCP 11. CKD3 Recommendations 1. His syncope appears to be brief and suspect due to vasovagal episode trigger ed by abd pain and nausea. This further was accentuated by rate controlling agents and associated parkinsons. Will hold toprol and amiodarone for now 2. Will check TSH. Monitor rhythm overnight. 3. Will consider repeating TTE as an outpt. ANJALI HORN MD 09/17/19 6624: CARDIAC CONSULT ASSESSMENT/PLAN ASSESSMENT/PLAN Patient seen and examined. 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 Syncope appears to be vasovagal Orthostats negative PAF maintaining SR Agree with holding toprol for bradycardia Resume amiodarone prior to DC Thank you for your consultation ROSAURA CALHOUN APRN September 17, 2019 15:14 ANJALI HORN MD September 17, 2019 19:04
[2019-09-17] MEDS ORDERED: LEVO75TA5 PO ×2 (15:39→16:20)
[2019-09-17] MEDS ORDERED: OMEG-117 PO (16:20)
[2019-09-17] MEDS ORDERED: DUTA0.5C16 PO (16:20)
[2019-09-17] MEDS ORDERED: ASPI325T11 PO (16:20)
[2019-09-17] MEDS ORDERED: CA C1TAB29 PO (16:20)
[2019-09-17] MEDS ORDERED: ASCO500C PO (16:20)
[2019-09-17] MEDS ORDERED: TRAZ-118 PO (16:20)
[2019-09-17] MEDS ORDERED: SPIR25TA5 PO (16:20)
[2019-09-17] MEDS ORDERED: DIVA500T2 PO (16:20)
[2019-09-17] MEDS ORDERED: SIMV20TA18 PO (16:20)
[2019-09-17] MEDS ORDERED: FURO20TA3 PO (16:20)
[2019-09-17] MEDS ORDERED: CETI10TA24 PO (16:20)
[2019-09-17] MEDS ORDERED: CARB1TAB25 PO (16:20)
--- NOTE | 2019-09-17 17:40 | PDOC1 ---
History and Physical Date of Admission Date of Admission DATE: 09/17/19 TIME: 17:40 Identification/Chief Complaint Chief Complaint loss of consciousness Source Source: Chart review, Patient History of Present Illness History of Present Illness Mr. Aquilino hernández, is a 74 year old male admit from ER for acute nausea vomiting, dizziness, found out in the bathroom by his this morning. Patient said he went to bathroom this morning and then he passed out on the floor, his called EMS, and he vomited a few times. 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 Endocrine: Hypothyroidism, Other (hyperaldosteronism) Past Surgical History Past Surgical History: Hernia Repair (inguinal), Other (vasectomy; skin CA removal) Family History Family History: Heart Disease Social History Smoke: No ALCOHOL: none Drugs: None Current Problem List Problem List Problems Medical Problems: (1) Contusion, back Status: Acute (2) Sinus bradycardia Status: Acute (3) Syncope and collapse Status: Acute Current Medications Current Medications Current Medications Ondansetron HCl (Zofran) 4 mg 1X ONCE IVP Last administered on 09/17/19at 09:45; Start 09/17/19 at 09:45; Stop 09/17/19 at 09:46; Status DC Metoclopramide HCl (Reglan Vial) 10 mg 1X ONCE IVP Last administered on at 10:13; Start 09/17/19 at 10:00; Stop 09/17/19 at 10:02; Status DC Glucagon (Glucagen) 3 mg 1X ONCE IV Last administered on 09/17/19at 10:24; Start 09/17/19 at 10:15; Stop 09/17/19 at 10:16; Status DC Ondansetron HCl (Zofran) 4 mg PRN Q8HRS PRN IV NAUSEA/VOMITING; Start 09/17/19 at 13:30; Stop 09/18/19 at 13:29 Active Scripts Active Reported Simvastatin 20 Mg Tablet 1 Tab PO QHS Fish Oil 1,200 mg Softgel ([place]-3/Dha/Epa/Fish Oil) 1 Each Capsule.dr 1 Cap PO BID 30 Days Vitamin D3-Aloe 1,000 Unit Tab (Ca Cmb 1/Vit D3/B-6/Fa/B12/Av) 1 Each Tablet 2 Each PO DAILY Depakote (Divalproex Sodium) 500 Mg Tablet.dr 1 Tab PO BID Trazodone Hcl 50 Mg Tablet 1 Tab PO QHS Dutasteride 0.5 Mg Capsule 0.5 Mg PO DAILYWSUP Carbidopa-Levodopa 25-250 Tab (Carbidopa/Levodopa) 1 Each Tablet 1 Tab PO TID 30 Days Spironolactone 25 Mg Tablet 1 Tab PO DAILY Furosemide 20 Mg Tablet 1 Tab PO DAILY Aspirin Ec (Aspirin) 325 Mg Tablet.dr 1 Tab PO DAILY Vitamin C (Ascorbic Acid) 500 Mg Capsule.er 1 Cap PO DAILY 30 Days Zyrtec (Cetirizine Hcl) 10 Mg Tablet 1 Tab PO DAILY Levothyroxine Sodium 75 Mcg Tablet 0.5 Tab PO MON-MONDAY. Levothyroxine Sodium 75 Mcg Tablet 1 Tab PO MONDAY-MON Allergies Allergies: Coded Allergies: escitalopram (Verified Allergy, Unknown, 06/29/19) ROS General: YES: Chills, Fatigue; No: Night Sweats, Appetite, Other PSYCHOLOGICAL ROS: No: Anxiety, Behavioral Disorder, Concentration difficultie, Decreased libido, Depression, Disorientation, Hallucinations, Hostility, Irritab lity, Memory difficulties, Mood Swings, Obsessive thoughts, Physical abuse, Sexual abuse, Sleep disturbances, Suicidal ideation, Other Eyes: No Blurry vision, No Decreased vision, No Double vision, No Dry eyes, No Excessive tearing, No Eye Pain, No Itchy Eyes, No Loss of vision, No Photophobia, No Scotomata, No Uses contacts, No Uses glasses, No Other HEENT: No: Heacaches, Visual Changes, Hearing change, Nasal congestion, Nasal discharge, Oral lesions, Sinus pain, Sore Throat, Epistaxis, Sneezing, Snoring, Tinnitus, Vertigo, Vocal changes, Other Respiratory: No: Cough, Hemoptysis, Orthopnea, Pleuritic Pain, Shortness of breath, SOB with excertion, Sputum Changes, Stridor, Tachypnea, Wheezing, Other Cardiovascular: No Chest Pain, No Palpitations, No Orthopnea, No Paroxysmal Noc. Dyspnea, No Edema, No Lt Headedness, No Other Gastrointestinal: No Nausea, No Vomiting, No Abdominal Pain, No Diarrhea, No Co nstipation, No Melena, No Hematochezia, No Other Genitourinary: No Dysuria, No Frequency, No Incontinence, No Hematuria, No Retention, No Discharge, No Urgency, No Pain, No Flank Pain, No Other, No , No , No , No , No , No , No Musculoskeletal: Yes Joint Stiffness; No Gait Disturbance, No Joint Swelling, No Muscle Pain, No Muscular Weakness, No Pain In:, No Swelling In:, No Other Neurological: Yes Memory Loss; No Behavorial Changes, No Bowel/Bladder ControlChng, No Confusion, No Dizziness, No Gait Disturbance, No Headaches, No Impaired Coord/balance, No Numbness/Tingling, No Seizures, No Speech Problems, No Tremors, No Visual Changes, No Weakness, No Other Skin: No Dry Skin, No Eczema, No Hair Changes, No Lumps, No Mole Changes, No Mottling, No Nail Changes, No Pruritus, No Rash, No Skin Lesion Changes, No Other, No Acne Physical Exam Physical Exam flat affect General: Oriented X3, Cooperative, mild distress, Other HEENT: Atraumatic, PERRLA Lungs: Clear to auscultation Heart: S1S2, RRR Extremities: No clubbing, No edema, Normal pulses Skin: No rashes Neuro: Normal speech, Sensation intact Psych/Mental Status: Mental status NL, Mood NL, Other Vitals Vitals Vital Signs Date Time Temp Pulse Resp B/P (MAP) Pulse Ox O2 Delivery O2 Flow Rate FiO2 09/17/19 15:00 97.6 52 18 129/75 (93) 98 Room Air 97.6 Labs Labs Laboratory Tests Test 09/17/19 09:40 09/17/19 13:05 White Blood Count 9.6 x10^3/uL (4.0-11.0) Red Blood Count 4.94 x10^6/uL (4.30-5.70) Hemoglobin 15.2 g/dL (13.0-17.5) Hematocrit 44.5 % (39.0-53.0) Mean Corpuscular Volume 90 fL (79-100) Mean Corpuscular Hemoglobin 31 pg (25-35) Mean Corpuscular Hemoglobin Concent 34 g/dL (31-37) Red Cell Distribution Width 13.0 % (11.5-14.5) Platelet Count 230 x10^3/uL (140-400) Neutrophils (%) (Auto) 61 % (31-73) Lymphocytes (%) (Auto) 21 % (24-48) Monocytes (%) (Auto) 14 % (0-9) Eosinophils (%) (Auto) 4 % (0-3) Basophils (%) (Auto) 1 % (0-3) Neutrophils # (Auto) 5.8 x10^3/uL (1.8-7.7) Lymphocytes # (Auto) 2.0 x10^3/uL (1.0-4.8) Monocytes # (Auto) 1.3 x10^3/uL (0.0-1.1) Eosinophils # (Auto) 0.4 x10^3/uL (0.0-0.7) Basophils # (Auto) 0.1 x10^3/uL (0.0-0.2) Prothrombin Time 12.9 SEC (11.7-14.0) Prothromb Time International Ratio 1.0 (0.8-1.1) Activated Partial Thromboplast Time 26 SEC (24-38) Sodium Level 136 mmol/L (136-145) Potassium Level 4.4 mmol/L (3.5-5.1) Chloride Level 99 mmol/L (98-107) Carbon Dioxide Level 26 mmol/L (21-32) Anion Gap 11 (6-14) Blood Urea Nitrogen 26 mg/dL (8-26) Creatinine 1.7 mg/dL (0.7-1.3) Estimated GFR (Cockcroft-Gault) 39.5 BUN/Creatinine Ratio 15 (6-20) Glucose Level 140 mg/dL (70-99) Calcium Level 9.8 mg/dL (8.5-10.1) Magnesium Level 2.0 mg/dL (1.8-2.4) Total Bilirubin 0.4 mg/dL (0.2-1.0) Aspartate Amino Transf (AST/SGOT) 20 U/L (15-37) Alanine Aminotransferase (ALT/SGPT) 7 U/L (16-63) Alkaline Phosphatase 54 U/L (46-116) Troponin I Quantitative < 0.017 ng/mL (0.000-0.055) OD-Vkv-U-Type Natriuretic Peptide 236 pg/mL (0-449) Total Protein 7.4 g/dL (6.4-8.2) Albumin 3.3 g/dL (3.4-5.0) Albumin/Globulin Ratio 0.8 (1.0-1.7) Lipase 205 U/L (73-393) Thyroid Stimulating Hormone (TSH) 2.838 uIU/mL (0.358-3.74) Free Thyroxine 1.51 ng/dL (0.76-1.46) Urine Collection Type Void Urine Color Yellow Urine Clarity Clear Urine pH 7.0 (<5.0-8.0) Urine Specific [place] 1.020 (1.000-1.030) Urine Protein Negative mg/dL (NEG-TRACE) Urine Glucose (UA) Negative mg/dL (NEG) Urine Ketones (Stick) Trace mg/dL (NEG) Urine Blood Negative (NEG) Urine Nitrite Negative (NEG) Urine Bilirubin Negative (NEG) Urine Urobilinogen Dipstick 0.2 mg/dL (0.2 mg/dL) Urine Leukocyte Esterase Negative (NEG) Urine RBC 0 /HPF (0-2) Urine WBC 0 /HPF (0-4) Urine Squamous Epithelial Cells Occ /LPF Urine Bacteria 0 /HPF (0-FEW) Laboratory Tests Test 09/17/19 09:40 09/17/19 13:05 White Blood Count 9.6 x10^3/uL (4.0-11.0) Red Blood Count 4.94 x10^6/uL (4.30-5.70) Hemoglobin 15.2 g/dL (13.0-17.5) Hematocrit 44.5 % (39.0-53.0) Mean Corpuscular Volume 90 fL (79-100) Mean Corpuscular Hemoglobin 31 pg (25-35) Mean Corpuscular Hemoglobin Concent 34 g/dL (31-37) Red Cell Distribution Width 13.0 % (11.5-14.5) Platelet Count 230 x10^3/uL (140-400) Neutrophils (%) (Auto) 61 % (31-73) Lymphocytes (%) (Auto) 21 % (24-48) Monocytes (%) (Auto) 14 % (0-9) Eosinophils (%) (Auto) 4 % (0-3) Basophils (%) (Auto) 1 % (0-3) Neutrophils # (Auto) 5.8 x10^3/uL (1.8-7.7) Lymphocytes # (Auto) 2.0 x10^3/uL (1.0-4.8) Monocytes # (Auto) 1.3 x10^3/uL (0.0-1.1) Eosinophils # (Auto) 0.4 x10^3/uL (0.0-0.7) Basophils # (Auto) 0.1 x10^3/uL (0.0-0.2) Prothrombin Time 12.9 SEC (11.7-14.0) Prothromb Time International Ratio 1.0 (0.8-1.1) Activated Partial Thromboplast Time 26 SEC (24-38) Sodium Level 136 mmol/L (136-145) Potassium Level 4.4 mmol/L (3.5-5.1) Chloride Level 99 mmol/L (98-107) Carbon Dioxide Level 26 mmol/L (21-32) Anion Gap 11 (6-14) Blood Urea Nitrogen 26 mg/dL (8-26) Creatinine 1.7 mg/dL (0.7-1.3) Estimated GFR (Cockcroft-Gault) 39.5 BUN/Creatinine Ratio 15 (6-20) Glucose Level 140 mg/dL (70-99) Calcium Level 9.8 mg/dL (8.5-10.1) Magnesium Level 2.0 mg/dL (1.8-2.4) Total Bilirubin 0.4 mg/dL (0.2-1.0) Aspartate Amino Transf (AST/SGOT) 20 U/L (15-37) Alanine Aminotransferase (ALT/SGPT) 7 U/L (16-63) Alkaline Phosphatase 54 U/L (46-116) Troponin I Quantitative < 0.017 ng/mL (0.000-0.055) SE-Epu-C-Type Natriuretic Peptide 236 pg/mL (0-449) Total Protein 7.4 g/dL (6.4-8.2) Albumin 3.3 g/dL (3.4-5.0) Albumin/Globulin Ratio 0.8 (1.0-1.7) Lipase 205 U/L (73-393) Thyroid Stimulating Hormone (TSH) 2.838 uIU/mL (0.358-3.74) Free Thyroxine 1.51 ng/dL (0.76-1.46) Urine Collection Type Void Urine Color Yellow Urine Clarity Clear Urine pH 7.0 (<5.0-8.0) Urine Specific [place] 1.020 (1.000-1.030) Urine Protein Negative mg/dL (NEG-TRACE) Urine Glucose (UA) Negative mg/dL (NEG) Urine Ketones (Stick) Trace mg/dL (NEG) Urine Blood Negative (NEG) Urine Nitrite Negative (NEG) Urine Bilirubin Negative (NEG) Urine Urobilinogen Dipstick 0.2 mg/dL (0.2 mg/dL) Urine Leukocyte Esterase Negative (NEG) Urine RBC 0 /HPF (0-2) Urine WBC 0 /HPF (0-4) Urine Squamous Epithelial Cells Occ /LPF Urine Bacteria 0 /HPF (0-FEW) VTE Prophylaxis Ordered VTE Prophylaxis Devices: No VTE Pharmacological Prophylaxi: Yes Assessment/Plan Assessment/Plan 1. Syncope: concern for symptomatic breadycardia, monitor on tele, check position BP 2. Sinus bradycardia: on b-anika for afib, 3. weakness, Parkinsons disease, 4. he reports Bipolar diagnosis, on Depakote 5. hypertension and hyperlipids 6/ hypothyroid, check levels 7. ckd ROSA POWELL MD September 17, 2019 17:40
[2019-09-17 19:30] VITALS: BP 127/68
[2019-09-17] MEDS: LEVODOPA PO SCH (20:51)
[2019-09-17] MEDS: CARBIDOPA PO SCH (20:51)
[2019-09-17] MEDS: DIVALPROEX DELAYED RELEASE 500 MG TABLET.DR. PO SCH (20:52)
[2019-09-17] MEDS ORDERED: ENOXAPARIN 40 MG/0.4 ML SYRINGE. SQ SCH (21:00)
[2019-09-17] MEDS ORDERED: traZODone 50 MG TABLET. PO SCH (21:00)
[2019-09-17] MEDS ORDERED: SIMVASTATIN 20 MG TABLET PO SCH (21:00)
[2019-09-17 23:00] VITALS: BP 111/58
[2019-09-18 03:10] VITALS: BP 101/60
[2019-09-18 04:55] LABS: BASO % 0 % (0-3); EOS # 0.1 x10^3/uL (0.0-0.7); EOS % 2 % (0-3); HEMATOCRIT 42.6 % (39.0-53.0); HEMOGLOBIN 14.5 g/dL (13.0-17.5); LYMPH # 1.7 x10^3/uL (1.0-4.8); LYMPH % 19 % (24-48); MEAN CORPUSCULAR HEMOGLOBIN 31 pg (25-35); MEAN CORPUSCULAR HGB CONC 34 g/dL (31-37); MEAN CORPUSCULAR VOLUME 90 fL (79-100); MONO # 0.9 x10^3/uL (0.0-1.1); MONO % 10 % (0-9); NEUT # 6.4 x10^3/uL (1.8-7.7); NEUT % 70 % (31-73); PLATELET COUNT 217 x10^3/uL (140-400); RED BLOOD COUNT 4.71 x10^6/uL (4.30-5.70); RED CELL DISTRIBUTION WIDTH 13.5 % (11.5-14.5); WHITE BLOOD COUNT 9.1 x10^3/uL (4.0-11.0)
[2019-09-18 05:16] LABS: ALBUMIN/GLOBULIN RATIO 0.8 (1.0-1.7); CALCIUM 9.3 mg/dL (8.5-10.1); CREATININE 1.9 mg/dL (0.7-1.3); GFR 34.7; POTASSIUM 4.3 mmol/L (3.5-5.1); TOTAL BILIRUBIN 0.4 mg/dL (0.2-1.0); TOTAL PROTEIN 6.7 g/dL (6.4-8.2)
[2019-09-18 07:00] VITALS: BP 139/74
[2019-09-18] MEDS ORDERED: LEVOTHYROXINE 75 MCG TABLET PO SCH (07:30)
[2019-09-18] MEDS ORDERED: SPIRONOLACTONE 25 MG TABLET PO SCH (09:00)
[2019-09-18] MEDS ORDERED: ASPIRIN ENTERIC COATED 325 MG TABLET.DR. PO SCH (09:00)
[2019-09-18] MEDS ORDERED: FUROSEMIDE 20 MG TABLET PO SCH (09:00)
[2019-09-18] MEDS ORDERED: CETIRIZINE HCL 10 MG TABLET. PO SCH (09:00)
[2019-09-18] MEDS: DIVALPROEX DELAYED RELEASE 500 MG TABLET.DR. PO SCH (09:10)
--- NOTE | 2019-09-18 09:21 | PDOC ---
ROSAURA CALHOUN [employer] 09/18/19 0921: CARDIO Progress Notes Date and Time Date of Service 09/18/2019 Time of Evaluation 0840 Subjective Subjective: No Chest Pain, No shortness of breath, No Palpitations Vitals Vitals Vital Signs Date Time Temp Pulse Resp B/P (MAP) Pulse Ox O2 Delivery O2 Flow Rate FiO2 09/18/19 07:00 97.6 51 18 139/74 (95) 97 Room Air 97.6 Weight Weight [ ] Input and Output Intake and Output Intake and Output 09/18/19 07:00 Intake Total 500 ml Output Total 1500 ml Balance -1000 ml Intake Oral 500 ml Output Urine Total 1500 ml Laboratory Labs Laboratory Tests Test 09/17/19 09:40 09/17/19 13:05 09/18/19 04:25 White Blood Count 9.6 x10^3/uL (4.0-11.0) 9.1 x10^3/uL (4.0-11.0) Red Blood Count 4.94 x10^6/uL (4.30-5.70) 4.71 x10^6/uL (4.30-5.70) Hemoglobin 15.2 g/dL (13.0-17.5) 14.5 g/dL (13.0-17.5) Hematocrit 44.5 % (39.0-53.0) 42.6 % (39.0-53.0) Mean Corpuscular Volume 90 fL (79-100) 90 fL (79-100) Mean Corpuscular Hemoglobin 31 pg (25-35) 31 pg (25-35) Mean Corpuscular Hemoglobin Concent 34 g/dL (31-37) 34 g/dL (31-37) Red Cell Distribution Width 13.0 % (11.5-14.5) 13.5 % (11.5-14.5) Platelet Count 230 x10^3/uL (140-400) 217 x10^3/uL (140-400) Neutrophils (%) (Auto) 61 % (31-73) 70 % (31-73) Lymphocytes (%) (Auto) 21 % (24-48) 19 % (24-48) Monocytes (%) (Auto) 14 % (0-9) 10 % (0-9) Eosinophils (%) (Auto) 4 % (0-3) 2 % (0-3) Basophils (%) (Auto) 1 % (0-3) 0 % (0-3) Neutrophils # (Auto) 5.8 x10^3/uL (1.8-7.7) 6.4 x10^3/uL (1.8-7.7) Lymphocytes # (Auto) 2.0 x10^3/uL (1.0-4.8) 1.7 x10^3/uL (1.0-4.8) Monocytes # (Auto) 1.3 x10^3/uL (0.0-1.1) 0.9 x10^3/uL (0.0-1.1) Eosinophils # (Auto) 0.4 x10^3/uL (0.0-0.7) 0.1 x10^3/uL (0.0-0.7) Basophils # (Auto) 0.1 x10^3/uL (0.0-0.2) 0.0 x10^3/uL (0.0-0.2) Prothrombin Time 12.9 SEC (11.7-14.0) Prothromb Time International Ratio 1.0 (0.8-1.1) Activated Partial Thromboplast Time 26 SEC (24-38) Sodium Level 136 mmol/L (136-145) 138 mmol/L (136-145) Potassium Level 4.4 mmol/L (3.5-5.1) 4.3 mmol/L (3.5-5.1) Chloride Level 99 mmol/L (98-107) 100 mmol/L (98-107) Carbon Dioxide Level 26 mmol/L (21-32) 31 mmol/L (21-32) Anion Gap 11 (6-14) 7 (6-14) Blood Urea Nitrogen 26 mg/dL (8-26) 28 mg/dL (8-26) Creatinine 1.7 mg/dL (0.7-1.3) 1.9 mg/dL (0.7-1.3) Estimated GFR (Cockcroft-Gault) 39.5 34.7 BUN/Creatinine Ratio 15 (6-20) 15 (6-20) Glucose Level 140 mg/dL (70-99) 86 mg/dL (70-99) Calcium Level 9.8 mg/dL (8.5-10.1) 9.3 mg/dL (8.5-10.1) Magnesium Level 2.0 mg/dL (1.8-2.4) Total Bilirubin 0.4 mg/dL (0.2-1.0) 0.4 mg/dL (0.2-1.0) Aspartate Amino Transf (AST/SGOT) 20 U/L (15-37) 17 U/L (15-37) Alanine Aminotransferase (ALT/SGPT) 7 U/L (16-63) 14 U/L (16-63) Alkaline Phosphatase 54 U/L (46-116) 49 U/L (46-116) Troponin I Quantitative < 0.017 ng/mL (0.000-0.055) QR-Cgj-P-Type Natriuretic Peptide 236 pg/mL (0-449) Total Protein 7.4 g/dL (6.4-8.2) 6.7 g/dL (6.4-8.2) Albumin 3.3 g/dL (3.4-5.0) 3.0 g/dL (3.4-5.0) Albumin/Globulin Ratio 0.8 (1.0-1.7) 0.8 (1.0-1.7) Lipase 205 U/L (73-393) Thyroid Stimulating Hormone (TSH) 2.838 uIU/mL (0.358-3.74) Free Thyroxine 1.51 ng/dL (0.76-1.46) Urine Collection Type Void Urine Color Yellow Urine Clarity Clear Urine pH 7.0 (<5.0-8.0) Urine Specific [place] 1.020 (1.000-1.030) Urine Protein Negative mg/dL (NEG-TRACE) Urine Glucose (UA) Negative mg/dL (NEG) Urine Ketones (Stick) Trace mg/dL (NEG) Urine Blood Negative (NEG) Urine Nitrite Negative (NEG) Urine Bilirubin Negative (NEG) Urine Urobilinogen Dipstick 0.2 mg/dL (0.2 mg/dL) Urine Leukocyte Esterase Negative (NEG) Urine RBC 0 /HPF (0-2) Urine WBC 0 /HPF (0-4) Urine Squamous Epithelial Cells Occ /LPF Urine Bacteria 0 /HPF (0-FEW) Physical Exam HEENT: Neck Supple W Full Motion Chest: Symmetric LUNGS: Clear to Auscultation Heart: S1S2, RRR (SR) Abdomen: Soft N/T Extremities: No Calf Tenderness Neurology: alert, oriented, follow commands Assessment Assessment 1. Syncope: likely vasovagal. no orthostasis. No further episode 2. Sinus bradycardia: lowest in the 40s remains with no blocks nor pauses so far. Likely associated with 100 mg of toprol 4. Parkinsons 5. PAFIB: SR/SB. No AFIB episodes 6. HLP 7. HTN: controlled. 8. Hypothyrodism: on replacement 9. Valvular insufficiency: mild to mod , mild AI/MR 10. RLQ Abdominal pain/nausea: defer to PCP 11. CKD3 Recommendations 1. His syncope appears to be brief and suspect due to vasovagal episode triggered by abd pain and nausea. This further was accentuated by rate controlling agents and associated parkinsons. Stop toprol and resume amiodarone prior to DC 2. With toprol being DCd, pt instructed to check HBPM bid for 1 week and call our office for any further adjustment of his BP regimen if outside parameters. Discussed with RN 3. Will consider repeating TTE as an outpt then follow up in office in 1 month. MATTEO GREGORIO MD 09/18/19 1602: CARDIO Progress Notes Assessment Assessment Patient seen and examined I agree with our nurse practitioners assessment and plan as above. Syncope: likely vasovagal. no orthostasis. No further episode holding beta- blockers. Restart amiodarone. Sinus bradycardia: lowest in the 40s remains with no blocks nor pauses. Beta anika on hold. so far. Likely associated with 100 mg of toprol Parkinsons PAFIB: SR/SB. No AFIB episodes ROSAURA CALHOUN APRN September 18, 2019 09:21 MATTEO GREGORIO MD September 18, 2019 16:02
[2019-09-18 11:04] VITALS: BP 155/68
[2019-09-18] MEDS: CARBIDOPA PO SCH (12:29)
[2019-09-18] MEDS: LEVODOPA PO SCH (12:29)
--- NOTE | 2019-09-18 12:38 | NUR ---
SS following for discharge planning. SS reviewed pt chart and discussed with pt RN. Pt is from home with spouse and is currently on room air. Discharge order on the chart for home with self care.
[2019-09-18 14:17] VITALS: BP 133/65
--- NOTE | 2019-09-18 15:05 | RAD ---
EXAM: Pelvis and left hip radiograph DATE: 09/18/2019 2:45 PM INDICATION: Fall, left hip pain. COMPARISON: None FINDINGS: AP view of the pelvis and AP and frog-leg lateral views of the left hip. No acute fracture. Alignment is normal. The hip joint spaces are maintained. There are small osteophytes at the superolateral left hip joint. The pubic symphysis and sacroiliac joints are maintained. IMPRESSION: No acute osseous abnormality. Electronically signed by: Faye Lee MD (09/18/2019 3:02 PM) [id number]
[2019-09-18] MEDS ORDERED: AMIO100T4 PO (15:41)
--- NOTE | 2019-09-18 16:49 | PDOC3 ---
Discharge Summary Visit Information Date of Admission: September 17, 2019 Date of Discharge: September 18, 2019 Admitting Diagnosis Comment: 1. Syncope: concern for symptomatic breadycardia, monitor on tele, check position BP 2. Sinus bradycardia: on b-anika for afib, 3. weakness, Parkinsons disease, 4. he reports Bipolar diagnosis, on Depakote 5. hypertension and hyperlipids 6/ hypothyroid, check levels 7. ckd Final Diagnosis Syncope: likely vasovagal. no orthostasis. No further episode Sinus bradycardia: most likely beta blockaed History of Parkinsons Paroxysmal AFIB History of essential hypertension History of dyslipidemia Hypothyrodism: on replacement History of valvulopathy with mild to mod , mild AI/MR CKD3 Brief Hospital Course Allergies Allergies Coded Allergies Type Severity Reaction Last Updated Verified escitalopram Allergy Unknown 06/29/19 Yes Vital Signs Vital Signs Date Time Temp Pulse Resp B/P (MAP) Pulse Ox O2 Delivery O2 Flow Rate FiO2 09/18/19 14:17 97.6 63 18 133/65 (87) 97 Room Air 97.6 Lab Results Laboratory Tests Test 09/17/19 09:40 09/17/19 13:05 09/18/19 04:25 White Blood Count 9.6 x10^3/uL (4.0-11.0) 9.1 x10^3/uL (4.0-11.0) Red Blood Count 4.94 x10^6/uL (4.30-5.70) 4.71 x10^6/uL (4.30-5.70) Hemoglobin 15.2 g/dL (13.0-17.5) 14.5 g/dL (13.0-17.5) Hematocrit 44.5 % (39.0-53.0) 42.6 % (39.0-53.0) Mean Corpuscular Volume 90 fL (79-100) 90 fL (79-100) Mean Corpuscular Hemoglobin 31 pg (25-35) 31 pg (25-35) Mean Corpuscular Hemoglobin Concent 34 g/dL (31-37) 34 g/dL (31-37) Red Cell Distribution Width 13.0 % (11.5-14.5) 13.5 % (11.5-14.5) Platelet Count 230 x10^3/uL (140-400) 217 x10^3/uL (140-400) Neutrophils (%) (Auto) 61 % (31-73) 70 % (31-73) Lymphocytes (%) (Auto) 21 % (24-48) 19 % (24-48) Monocytes (%) (Auto) 14 % (0-9) 10 % (0-9) Eosinophils (%) (Auto) 4 % (0-3) 2 % (0-3) Basophils (%) (Auto) 1 % (0-3) 0 % (0-3) Neutrophils # (Auto) 5.8 x10^3/uL (1.8-7.7) 6.4 x10^3/uL (1.8-7.7) Lymphocytes # (Auto) 2.0 x10^3/uL (1.0-4.8) 1.7 x10^3/uL (1.0-4.8) Monocytes # (Auto) 1.3 x10^3/uL (0.0-1.1) 0.9 x10^3/uL (0.0-1.1) Eosinophils # (Auto) 0.4 x10^3/uL (0.0-0.7) 0.1 x10^3/uL (0.0-0.7) Basophils # (Auto) 0.1 x10^3/uL (0.0-0.2) 0.0 x10^3/uL (0.0-0.2) Prothrombin Time 12.9 SEC (11.7-14.0) Prothromb Time International Ratio 1.0 (0.8-1.1) Activated Partial Thromboplast Time 26 SEC (24-38) Sodium Level 136 mmol/L (136-145) 138 mmol/L (136-145) Potassium Level 4.4 mmol/L (3.5-5.1) 4.3 mmol/L (3.5-5.1) Chloride Level 99 mmol/L (98-107) 100 mmol/L (98-107) Carbon Dioxide Level 26 mmol/L (21-32) 31 mmol/L (21-32) Anion Gap 11 (6-14) 7 (6-14) Blood Urea Nitrogen 26 mg/dL (8-26) 28 mg/dL (8-26) Creatinine 1.7 mg/dL (0.7-1.3) 1.9 mg/dL (0.7-1.3) Estimated GFR (Cockcroft-Gault) 39.5 34.7 BUN/Creatinine Ratio 15 (6-20) 15 (6-20) Glucose Level 140 mg/dL (70-99) 86 mg/dL (70-99) Calcium Level 9.8 mg/dL (8.5-10.1) 9.3 mg/dL (8.5-10.1) Magnesium Level 2.0 mg/dL (1.8-2.4) Total Bilirubin 0.4 mg/dL (0.2-1.0) 0.4 mg/dL (0.2-1.0) Aspartate Amino Transf (AST/SGOT) 20 U/L (15-37) 17 U/L (15-37) Alanine Aminotransferase (ALT/SGPT) 7 U/L (16-63) 14 U/L (16-63) Alkaline Phosphatase 54 U/L (46-116) 49 U/L (46-116) Troponin I Quantitative < 0.017 ng/mL (0.000-0.055) RR-Txp-W-Type Natriuretic Peptide 236 pg/mL (0-449) Total Protein 7.4 g/dL (6.4-8.2) 6.7 g/dL (6.4-8.2) Albumin 3.3 g/dL (3.4-5.0) 3.0 g/dL (3.4-5.0) Albumin/Globulin Ratio 0.8 (1.0-1.7) 0.8 (1.0-1.7) Lipase 205 U/L (73-393) Thyroid Stimulating Hormone (TSH) 2.838 uIU/mL (0.358-3.74) Free Thyroxine 1.51 ng/dL (0.76-1.46) Urine Collection Type Void Urine Color Yellow Urine Clarity Clear Urine pH 7.0 (<5.0-8.0) Urine Specific [place] 1.020 (1.000-1.030) Urine Protein Negative mg/dL (NEG-TRACE) Urine Glucose (UA) Negative mg/dL (NEG) Urine Ketones (Stick) Trace mg/dL (NEG) Urine Blood Negative (NEG) Urine Nitrite Negative (NEG) Urine Bilirubin Negative (NEG) Urine Urobilinogen Dipstick 0.2 mg/dL (0.2 mg/dL) Urine Leukocyte Esterase Negative (NEG) Urine RBC 0 /HPF (0-2) Urine WBC 0 /HPF (0-4) Urine Squamous Epithelial Cells Occ /LPF Urine Bacteria 0 /HPF (0-FEW) Laboratory Tests Test 09/18/19 04:25 White Blood Count 9.1 x10^3/uL (4.0-11.0) Red Blood Count 4.71 x10^6/uL (4.30-5.70) Hemoglobin 14.5 g/dL (13.0-17.5) Hematocrit 42.6 % (39.0-53.0) Mean Corpuscular Volume 90 fL (79-100) Mean Corpuscular Hemoglobin 31 pg (25-35) Mean Corpuscular Hemoglobin Concent 34 g/dL (31-37) Red Cell Distribution Width 13.5 % (11.5-14.5) Platelet Count 217 x10^3/uL (140-400) Neutrophils (%) (Auto) 70 % (31-73) Lymphocytes (%) (Auto) 19 % (24-48) Monocytes (%) (Auto) 10 % (0-9) Eosinophils (%) (Auto) 2 % (0-3) Basophils (%) (Auto) 0 % (0-3) Neutrophils # (Auto) 6.4 x10^3/uL (1.8-7.7) Lymphocytes # (Auto) 1.7 x10^3/uL (1.0-4.8) Monocytes # (Auto) 0.9 x10^3/uL (0.0-1.1) Eosinophils # (Auto) 0.1 x10^3/uL (0.0-0.7) Basophils # (Auto) 0.0 x10^3/uL (0.0-0.2) Sodium Level 138 mmol/L (136-145) Potassium Level 4.3 mmol/L (3.5-5.1) Chloride Level 100 mmol/L (98-107) Carbon Dioxide Level 31 mmol/L (21-32) Anion Gap 7 (6-14) Blood Urea Nitrogen 28 mg/dL (8-26) Creatinine 1.9 mg/dL (0.7-1.3) Estimated GFR (Cockcroft-Gault) 34.7 BUN/Creatinine Ratio 15 (6-20) Glucose Level 86 mg/dL (70-99) Calcium Level 9.3 mg/dL (8.5-10.1) Total Bilirubin 0.4 mg/dL (0.2-1.0) Aspartate Amino Transf (AST/SGOT) 17 U/L (15-37) Alanine Aminotransferase (ALT/SGPT) 14 U/L (16-63) Alkaline Phosphatase 49 U/L (46-116) Total Protein 6.7 g/dL (6.4-8.2) Albumin 3.0 g/dL (3.4-5.0) Albumin/Globulin Ratio 0.8 (1.0-1.7) Brief Hospital Course History of Present Illness History of Present Illness Mr. Aquilino hernández, is a 74 year old male admit from ER for acute nausea vomiting, dizziness, found out in the bathroom by his this morning. Patient said he went to bathroom this morning and then he passed out on the floor, his called EMS, and he vomited a few times. 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 Patient syncopal episode was brief and suspected to be due to a vasovagal episode triggered by abdominal discomfort and nausea. Abdominal nausea has resolved and given the benign nature of his presentation and current testing patient was deemed appropriate for discharge from the cardiological standpoint of view. Toprol will be discontinued at this time and he was instructed to follow-up with cardiology in the outpatient setting he was also advised to check his blood pressure at home for 1 week and if he starts having high readings to call the cardiology office in order to address the issue at that time. They will consider repeating a transthoracic echocardiogram in the outpatient setting in about 1 month. Patient can continue with amiodarone as he had been doing at home. Med reconciliation lacked the amiodarone and as per bus info consultant and should be on amiodarone 200 mg orally daily. Physical Exam HEENT: Neck Supple W Full Motion Chest: Symmetric LUNGS: Clear to Auscultation Heart: S1S2, RRR (SR) Abdomen: Soft N/T Extremities: No Calf Tenderness Neurology: alert, oriented, follow commands Discharge Information Condition at Discharge: Improved Follow Up: Weeks Disposition/Orders: D/C to Home Scheduled Amiodarone Hcl (Amiodarone Hcl) 100 Mg Tablet, 1 TAB PO DAILY for Heart rate for 30 Days, #30 Ref 0 (Reported) Entered as Reported by: DARIEL MCKINNEY RN on 09/18/19 154 Ascorbic Acid (Vitamin C) 500 Mg Capsule.er, 1 CAP PO DAILY for supplement for 30 Days, #30 Ref 0 (Reported) Entered as Reported by: Emmanuel Black on 09/17/191619 Last Action: HELD on 09/17/191738 by ROSA POWELL Aspirin (Aspirin Ec) 325 Mg Tablet.dr, 1 TAB PO DAILY for blood thinner, #30 Ref 5 (Reported) Entered as Reported by: Emmanuel Black on 09/17/191619 Last Action: Continued on 09/17/191738 by ROSA POWELL Ca Cmb 1/Vit D3/B-6/Fa/B12/Av (Vitamin D3-Aloe 1,000 Unit Tab) 1 Each Tablet, 2 EACH PO DAILY for immune support, (Reported) Entered as Reported by: Emmanuel Black on 09/17/191619 Last Action: HELD on 09/17/191738 by ROSA POWELL Carbidopa/Levodopa (Carbidopa-Levodopa 25-250 Tab) 1 Each Tablet, 1 TAB PO TID for parkinsons for 30 Days, #90 Ref 0 (Reported) Entered as Reported by: Emmanuel Black on 09/17/191619 Last Action: Continued on 09/17/191738 by ROSA POWELL Cetirizine Hcl (Zyrtec) 10 Mg Tablet, 1 TAB PO DAILY for allergy, #30 Ref 2 (Reported) Entered as Reported by: Emmanuel Black on 09/17/191619 Last Action: Continued on 09/17/191738 by ROSA POWELL Divalproex Sodium (Depakote) 500 Mg Tablet.dr, 1 TAB PO BID for seizure, #60 Ref 1 (Reported) Entered as Reported by: Emmanuel Black on 09/17/191619 Last Action: Continued on 09/17/191738 by ROSA POWELL Dutasteride (Dutasteride) 0.5 Mg Capsule, 0.5 MG PO DAILYWSUP for prostate, (Reported) Entered as Reported by: Emmanuel Black on 09/17/191619 Last Action: Continued on 09/17/191738 by ROSA POWELL Furosemide (Furosemide) 20 Mg Tablet, 1 TAB PO DAILY for diuretic, #90 Ref 1 (Reported) Entered as Reported by: Emmanuel Black on 09/17/191619 Last Action: Continued on 09/17/191738 by ROSA POWELL Levothyroxine Sodium (Levothyroxine Sodium) 75 Mcg Tablet, 1 TAB PO Monday-Mon for thyroidism, #30 Ref 5 (Reported) Entered as Reported by: Emmanuel Black on 09/17/191538 Last Action: Continued on 09/17/191738 by ROSA POWELL Levothyroxine Sodium (Levothyroxine Sodium) 75 Mcg Tablet, 0.5 TAB PO Mon- Monday. for thyroidism, #30 Ref 5 (Reported) Entered as Reported by: Emmanuel Black on 09/17/191619 Last Action: New Order on 09/17/191619 by Emmanuel Black Wilbraham-3/Dha/Epa/Fish Oil (Fish Oil 1,200 mg Softgel) 1 Each Capsule.dr, 1 CAP PO BID for cholesterol for 30 Days, #60 Ref 0 (Reported) Entered as Reported by: Emmanuel Black on 09/17/191619 Last Action: HELD on 09/17/191738 by ROSA POWELL Simvastatin (Simvastatin) 20 Mg Tablet, 1 TAB PO QHS for cholesterol, #30 Ref 5 (Reported) Entered as Reported by: Emmanuel Black on 09/17/191619 Last Action: Continued on 09/17/191738 by ROSA POWELL Spironolactone (Spironolactone) 25 Mg Tablet, 1 TAB PO DAILY for diuretic, #90 Ref 1 (Reported) Entered as Reported by: Emmanuel Black on 09/17/191619 Last Action: Continued on 09/17/191738 by ROSA POWELL Trazodone Hcl (Trazodone Hcl) 50 Mg Tablet, 1 TAB PO QHS for sleep aid, #30 Ref 1 (Reported) Entered as Reported by: Emmanuel Black on 09/17/191619 Last Action: Continued on 09/17/191738 by YARIEL DOOLEY MD September 18, 2019 16:49
[2019-09-18] MEDS ORDERED: DUTASTERIDE 0.5 MG CAPSULE PO SCH (17:00)
--- NOTE | 2019-09-18 17:00 | NUR ---
Discharge Note: MARYLIN LEE Discharge instructions and discharge home medications reviewed with Patient and a copy given. All questions have been answered and understanding verbalized. The following instructions and handouts were given: syncope, bradycardia, and cardiac diet. Discontinued iv line and catheter. Patient discharged to home with self-care via private vehicle.
== END 2019-09-18 15:25 | disposition home or self-care (01) | DRG 312 ==
LOC: ER 09:30 → 2 NORTH 13:36
PROVIDERS: ADMIT Internal Medicine; ATTEND Internal Medicine
DX: R55 Syncope and collapse (principal); R00.1 Bradycardia, unspecified; F41.9 Anxiety disorder, unspecified; K21.9 Gastro-esophageal reflux disease without esophagitis; M19.90 Unspecified osteoarthritis, unspecified site; E03.9 Hypothyroidism, unspecified; E27.8 Other specified disorders of adrenal gland; E78.5 Hyperlipidemia, unspecified; F31.9 Bipolar disorder, unspecified; G20 Parkinson's disease; I12.9 Hypertensive chronic kidney disease with stage 1 through stage 4 chronic kidney disease, or unspecified chronic kidney disease; I48.0 Paroxysmal atrial fibrillation; I73.9 Peripheral vascular disease, unspecified; N18.3 Chronic kidney disease, stage 3 (moderate); E26.9 Hyperaldosteronism, unspecified; I08.0 Rheumatic disorders of both mitral and aortic valves; N40.0 Benign prostatic hyperplasia without lower urinary tract symptoms; Z85.828 Personal history of other malignant neoplasm of skin; Z88.8 Allergy status to other drugs, medicaments and biological substances; Z82.49 Family history of ischemic heart disease and other diseases of the circulatory system
CPT/HCPCS: 36415; 70450; 71045; 72125; 72128; 73502; 80053; 81001; 83690; 83735; 83880; 84439; 84443; 84484; 85025; 85610; 85730; 93005; 96374; 96375; 99285; J1610; J1650; J2405; J2765; G0378

== ENCOUNTER → 2019-11-06 | Outpatient (CLI) | payer MEDICARE, BC ==
[~2019-11-06] MED LIST: AMIO100T4 PO; ASCO500C PO; ASPI325T11 PO; CA C1TAB29 PO; CARB1TAB25 PO; CETI10TA24 PO; DIVA500T2 PO; DUTA0.5C16 PO; FURO20TA3 PO; LEVO75TA5 PO; OMEG-117 PO; SIMV20TA18 PO; SPIR25TA5 PO; TRAZ-118 PO
--- NOTE | 2019-11-06 15:32 | CARD ---
MR#: [id number] Date of Study: 11/06/2019 Ordering Physician: MATTEO GREGORIO, Referring Physician: MATTEO GREGORIO, Tech: Caitlyn Ambriz APPROVED REPORT EXAM: Two-dimensional and M-mode echocardiogram with Doppler and color Doppler. Other Information Quality : AverageHR: 62bpm INDICATION Atrial Fibrillation 2D DIMENSIONS RVDd3.3 (2.9-3.5cm)Left Atrium(2D)3.2 (1.6-4.0cm) IVSd1.6 (0.7-1.1cm)Aortic Root(2D)3.4 (2.0-3.7cm) LVDd4.6 (3.9-5.9cm)LVOT Diameter1.9 (1.8-2.4cm) PWd1.3 (0.7-1.1cm)LVDs2.8 (2.5-4.0cm) FS (%) 38.2 %SV66.3 ml LVEF(%)68.5 (>50%) Aortic Valve AoV Peak Marty.222.4cm/sAoV VTI49.2cm AO Peak GR.19.8mmHgLVOT Peak Marty.91.7cm/s LVOT VTI 21.39cmAO Mean GR.12mmHg DANY (VMAX)0.05kk8PIU (VTI)1.26cm2 AI P 1/2 Reqh681ia Mitral Valve MV E Fvktyugp26.9cm/sMV DECEL MTFW498os MV A Fxyfrgyi24.1cm/sMV E Mean Gr.2mmHg MV ZFL06bcG/A Ratio0.7 MVA (PHT)2.39cm2 TDI E/Lateral E'7.3E/Medial E'10.0 Pulmonary Valve PV Peak Bnjodevg72.8cm/sPV Peak Grad.2mmHg Tricuspid Valve TR P. Agfijftu274sx/sRAP SDKYQQFT7vcAp TR Peak Gr.91ecVnTZNL47jvGv Pulmonary Vein S1 Rpkfkcqz15.9cm/sD2 Lefpcopt65.2cm/s PVa [id number] LEFT VENTRICLE The left ventricle is normal size. There is mild to moderate concentric left ventricular hypertrophy. The left ventricular systolic function is normal. The Ejection Fraction is 55-60%. There is normal L V segmental wall motion. Transmitral Doppler flow pattern is Grade I-abnormal relaxation pattern. RIGHT VENTRICLE The right ventricle is normal size. There is normal right ventricular wall thickness. The right ventr icular systolic function is normal. ATRIA The left atrium size is normal. The right atrium is borderline dilated. The interatrial septum is int act with no evidence for an atrial septal defect or patent foramen ovale as noted on 2-D or Doppler i maging. AORTIC VALVE The aortic valve is calcified. Doppler and Color Flow revealed mild aortic regurgitation. There is no significant aortic valvular stenosis. Calculated aortic valve area is 1.32 cm2 with maximum pressure gradient of 22 mmHg and mean pressure gradient of 12 mmHg. MITRAL VALVE The mitral valve is normal in structure and function. There is no evidence of mitral valve prolapse. There is no mitral valve stenosis. Doppler and Color Flow revealed no mitral valve regurgitation note d. TRICUSPID VALVE The tricuspid valve is normal in structure and function. Doppler and Color Flow revealed trace tricus pid regurgitation with an estimated PAP of 30 mmHg. There is no tricuspid valve stenosis. PULMONIC VALVE The pulmonic valve is not well visualized. Doppler and Color Flow revealed trace pulmonic valvular re gurgitation. GREAT VESSELS The aortic root is normal in size. The IVC is normal in size and collapses >50% with inspiration. PERICARDIAL EFFUSION There is no evidence of significant pericardial effusion. Critical Notification Critical Value: No <Conclusion> The left ventricular systolic function is normal. The Ejection Fraction is 55-60%. There is normal LV segmental wall motion. Transmitral Doppler flow pattern is Grade I-abnormal relaxation pattern. Mild aortic regurgitation. Trace tricuspid regurgitation with an estimated PAP of 30 mmHg. There is no evidence of significant pericardial effusion. Signed by : José Miguel Gatica, Electronically Approved : 11/06/2019 15:31:25
== END | disposition home or self-care (01) ==
LOC: ECHO 13:42
PROVIDERS: ATTEND Internal Medicine Cardiovascular Disease
DX: I51.7 Cardiomegaly (principal); I35.1 Nonrheumatic aortic (valve) insufficiency; I48.91 Unspecified atrial fibrillation
CPT/HCPCS: 93306

== ENCOUNTER 2020-04-11 23:06 | Emergency (ER) | payer MEDICARE, BC ==
[~2020-04-11] VITALS: Ht 175.3 cm; Wt 88.3 kg
[~2020-04-11 23:06] MED LIST changes: -CETI10TA24 PO; +CETI10TA74 PO
[2020-04-11] MEDS ORDERED: FAMOTIDINE 20 MG/2 ML VIAL IVP ONE (23:15)
[2020-04-11] MEDS ORDERED: ONDANSETRON PF 4 MG/2 ML VIAL. IVP ONE (23:15)
[2020-04-11] MEDS ORDERED: IV NORMAL SALINE 1000ML BAG 1,000 ML IV ONE (23:15)
[2020-04-11] MEDS ORDERED: KETOROLAC 15 MG/ML VIAL. IVP ONE (23:15)
[2020-04-11 23:27] LABS: BASO # 0.1 x10^3/uL (0.0-0.2); BASO % 0 % (0-3); EOS % 0 % (0-3); HEMATOCRIT 47.2 % (39.0-53.0); HEMOGLOBIN 16.1 g/dL (13.0-17.5); LYMPH # 0.7 x10^3/uL (1.0-4.8); LYMPH % 4 % (24-48); MEAN CORPUSCULAR HEMOGLOBIN 31 pg (25-35); MEAN CORPUSCULAR HGB CONC 34 g/dL (31-37); MEAN CORPUSCULAR VOLUME 90 fL (79-100); MONO # 0.9 x10^3/uL (0.0-1.1); MONO % 6 % (0-9); NEUT # 14.6 x10^3/uL (1.8-7.7); NEUT % 90 % (31-73); PLATELET COUNT 200 x10^3/uL (140-400); RED BLOOD COUNT 5.25 x10^6/uL (4.30-5.70); RED CELL DISTRIBUTION WIDTH 13.9 % (11.5-14.5); WHITE BLOOD COUNT 16.3 x10^3/uL (4.0-11.0)
[2020-04-11 23:33] LABS: CALCIUM 10.1 mg/dL (8.5-10.1); CREATININE 1.6 mg/dL (0.7-1.3); GFR 42.3; POTASSIUM 4.8 mmol/L (3.5-5.1)
[2020-04-11 23:38] LABS: ALBUMIN 3.7 g/dL (3.4-5.0); ALBUMIN/GLOBULIN RATIO 0.9 (1.0-1.7); MAGNESIUM 1.9 mg/dL (1.8-2.4); TOTAL BILIRUBIN 0.6 mg/dL (0.2-1.0); TOTAL PROTEIN 7.8 g/dL (6.4-8.2)
[2020-04-11 23:47] LABS: BILIRUBIN,URINE NEGATIVE (NEG); CLARITY,URINE CLEAR; COLOR,URINE YELLOW; NITRITE,URINE NEGATIVE (NEG); PH,URINE 7.5 (<5.0-8.0); PROTEIN,URINE NEGATIVE (NEG-TRACE); UROBILINOGEN,URINE 0.2 mg/dL (0.2 mg/dL)
[2020-04-11 23:53] LABS: BACTERIA,URINE 0 /HPF (0-FEW); RBC,URINE OCC /HPF (0-2); WBC,URINE OCC /HPF (0-4)
[2020-04-11] MEDS ORDERED: IOHEXOL 240 MG/ML 50ML VIAL. PO ONE (23:55)
[2020-04-11] MEDS ORDERED: CONTRAST GIVEN. MC PRN (23:55)
--- NOTE | 2020-04-12 00:04 | PHYS DOC ---
Past Medical History Past Medical History: Cancer, Hypertension, Hypothyroid Additional Past Medical Histor: parkinsons; skin CA Past Surgical History: Other Additional Past Surgical Histo: vasectomy; inguinal hernia; tongue clipped; Smoking Status: Former Smoker Alcohol Use: None General Adult EDM: Chief Complaint: ABDOMINAL PAIN HPI: HPI: Patient is a 74 year old male who presents with constipation. Pt has not had a bowel movement since monday. Pt vomited earlier today and during exam. Pt states that he has abdominal pain that is rated 8/10 and located below his belly button. It feels solid and heavy. Pt takes mirilax daily normally. Nothing has made the pain or constipation better. Pt also normally uses depends and has noticed that he has liquid stools today. Pt admits his diet is normally better but in the last few days he has a lot of carbs. Review of Systems: Review of Systems: Constitutional: Denies fever or chills Eyes: Denies redness or eye pain HENT: Denies nasal congestion or sore throat Respiratory: Denies cough or shortness of breath Cardiovascular: Denies chest pain or palpitations GI: Endorses abdominal pain and vomiting : Denies dysuria or hematuria Musculoskeletal: Denies back pain or joint pain Integument: Denies rash or skin lesions Neurologic: Denies headache or sensory changes Complete systems were reviewed and found to be within normal limits, except as documented in this note. Current Medications: Current Medications Medications (Trade) Dose Ordered Sig/Cyndy Start Time Stop Time Status Last Admin Dose Admin Famotidine (Pepcid Vial) 20 mg 1X ONCE 04/11/20 23:15 04/11/20 23:30 DC 04/11/20 23:28 20 MG Info (CONTRAST GIVEN -- Rx MONITORING) 1 each PRN DAILY PRN 04/11/20 23:55 04/13/20 23:54 Iohexol (Omnipaque 240 Mg/ml) 50 ml 1X ONCE 04/11/20 23:55 04/11/20 23:56 Ketorolac Tromethamine (Toradol 15mg Vial) 10 mg 1X ONCE 04/11/20 23:15 04/11/20 23:30 DC 04/11/20 23:28 10 MG Ondansetron HCl (Zofran) 4 mg 1X ONCE 04/11/20 23:15 04/11/20 23:30 DC 04/11/20 23:28 4 MG Sodium Chloride 1,000 ml @ 1,000 mls/hr 1X ONCE 04/11/20 23:15 04/12/20 00:14 04/11/20 23:28 1,000 MLS/HR Allergies: Allergies: Allergies Coded Allergies Type Severity Reaction Last Updated Verified escitalopram Allergy Unknown 06/29/19 Yes Physical Exam: PE: Constitutional: Well developed, well nourished, no acute distress, non-toxic appearance HENT: Normocephalic, atraumatic Eyes: PERRL, EOMI, conjunctiva normal, no discharge Neck: Normal range of motion, no tenderness, supple Lungs & Thorax: No respiratory distress, equal chest rise and fall Abdomen: Slightly firm, tenderness to palpation in lower quadrants, BSx4 Skin: Warm, dry, no erythema, no rash Back: No tenderness, no CVA tenderness Extremities: No tenderness, ROM intact, no edema Neurologic: Alert and oriented X 3, normal motor function, normal sensory function, no focal deficits noted Psychologic: Affect normal, judgment normal Current Patient Data: Labs: Laboratory Tests Test 04/11/20 23:10 04/11/20 23:35 White Blood Count 16.3 x10^3/uL (4.0-11.0) H Red Blood Count 5.25 x10^6/uL (4.30-5.70) Hemoglobin 16.1 g/dL (13.0-17.5) Hematocrit 47.2 % (39.0-53.0) Mean Corpuscular Volume 90 fL (79-100) Mean Corpuscular Hemoglobin 31 pg (25-35) Mean Corpuscular Hemoglobin Concent 34 g/dL (31-37) Red Cell Distribution Width 13.9 % (11.5-14.5) Platelet Count 200 x10^3/uL (140-400) Neutrophils (%) (Auto) 90 % (31-73) H Lymphocytes (%) (Auto) 4 % (24-48) L Monocytes (%) (Auto) 6 % (0-9) Eosinophils (%) (Auto) 0 % (0-3) Basophils (%) (Auto) 0 % (0-3) Neutrophils # (Auto) 14.6 x10^3/uL (1.8-7.7) H Lymphocytes # (Auto) 0.7 x10^3/uL (1.0-4.8) L Monocytes # (Auto) 0.9 x10^3/uL (0.0-1.1) Eosinophils # (Auto) 0.0 x10^3/uL (0.0-0.7) Basophils # (Auto) 0.1 x10^3/uL (0.0-0.2) Platelet Estimate Pending Sodium Level 131 mmol/L (136-145) L Potassium Level 4.8 mmol/L (3.5-5.1) Chloride Level 94 mmol/L (98-107) L Carbon Dioxide Level 27 mmol/L (21-32) Anion Gap 10 (6-14) Blood Urea Nitrogen 26 mg/dL (8-26) Creatinine 1.6 mg/dL (0.7-1.3) H Estimated GFR (Cockcroft-Gault) 42.3 BUN/Creatinine Ratio 16 (6-20) Glucose Level 194 mg/dL (70-99) H Calcium Level 10.1 mg/dL (8.5-10.1) Magnesium Level 1.9 mg/dL (1.8-2.4) Total Bilirubin 0.6 mg/dL (0.2-1.0) Aspartate Amino Transferase (AST) 19 U/L (15-37) Alanine Aminotransferase (ALT) 13 U/L (16-63) L Alkaline Phosphatase 64 U/L (46-116) Total Protein 7.8 g/dL (6.4-8.2) Albumin 3.7 g/dL (3.4-5.0) Albumin/Globulin Ratio 0.9 (1.0-1.7) L Lipase 164 U/L (73-393) Urine Collection Type Unknown Urine Color Yellow Urine Clarity Clear Urine pH 7.5 (<5.0-8.0) Urine Specific [place] 1.015 (1.000-1.030) Urine Protein Negative mg/dL (NEG-TRACE) Urine Glucose (UA) Negative mg/dL (NEG) Urine Ketones (Stick) Negative mg/dL (NEG) Urine Blood Negative (NEG) Urine Nitrite Negative (NEG) Urine Bilirubin Negative (NEG) Urine Urobilinogen Dipstick 0.2 mg/dL (0.2 mg/dL) Urine Leukocyte Esterase Negative (NEG) Urine RBC Occ /HPF (0-2) Urine WBC Occ /HPF (0-4) Urine Squamous Epithelial Cells Occ /LPF Urine Bacteria 0 /HPF (0-FEW) Laboratory Tests 04/11/20 23:10 Laboratory Tests 04/11/20 23:10 Vital Signs: Vital Signs Date Time Temp Pulse Resp B/P (MAP) Pulse Ox O2 Delivery O2 Flow Rate FiO2 04/11/20 23:09 98.0 77 16 158/78 (104) 98 Room Air 98.0 EKG: EKG: [] Radiology/Procedures: Radiology/Procedures: PROCEDURE: CT ABD PEL W/ORAL CONTRST ONLY CT ABD PEL W/ORAL CONTRST ONLY INDICATION: Reason: abdominal pain, constipation, N/V, eval for obstruction EXAM: Noncontrast CT of the abdomen and pelvis. Coronal and sagittal reformatted images were performed. PQRS compliance statement: One or more of the following individualized dose reduction techniques were utilized for this examination: 1. Automated exposure control 2. Adjustment of the mA and/or kV according to patient size 3. Use of iterative reconstruction technique COMPARISON: None FINDINGS: No free air, free fluid, or fluid collection. Lower chest: The visualized lower lungs are aerated. No pleural or pericardial effusion. Cardiomegaly. Coronary artery atherosclerotic disease. ABDOMEN: Liver: The noncontrast liver is homogeneous in attenuation. Gallbladder and biliary: Normal gallbladder without radiopaque stone. Normal caliber bile ducts. Spleen: Normal spleen. Pancreas: The noncontrast pancreas is homogeneous in attenuation without peripancreatic inflammatory changes. Adrenal glands: Bilateral adrenal adenomas Kidneys and ureters: No opaque urinary calculi. Normal kidneys and ureters. GI tract: Ingested oral contrast reaches the mid ileum. No dilated loops of small bowel. Large colonic stool burden. Appendix is not seen. Vascular structures: Moderate aortoiliac atherosclerotic disease. Lymph nodes: No lymphadenopathy in the abdomen or pelvis. PELVIS: Genitourinary system: Normal bladder. SKELETAL STRUCTURES AND SOFT TISSUES: Degenerative changes of the spine. Symmetric gynecomastia. IMPRESSION: 1. Large colonic stool burden consistent with patient's history of constipation. 2. No dilated small bowel to suggest obstruction. Ingested oral contrast reaches the mid ileum. Electronically signed by: Baljinder Heath MD (04/12/2020 1:14 AM) [facility] Course & Med Decision Making: Course & Med Decision Making Pertinent Labs and Imaging studies reviewed. (See chart for details) 74 yo male pt presents with abdominal pain and constipation that has gotten worse since Monday. Pt has not had a bowel movement since Monday. Labs obtained and posted. CT with oral contrast demonstrated a large stool burden without obstruction. Pt symptomatically treated. Patient stable for discharge with outpatient follow-up with PCP. Discussed findings and plan with patient, who acknowledges understanding and agreement. Topher Disclaimer: Topher Disclaimer: This electronic medical record was generated, in whole or in part, using a voice recognition dictation system. Departure Departure Impression: Primary Impression: Constipation Qualified Codes: K59.00 - Constipation, unspecified Disposition: DC HOME SELF CARE/HOMELESS Condition: STABLE Referrals: SUHAIL GARCIA (PCP) PALOMA GUNN MD Patient Instructions: Constipation, Adult, Cufq-ce-Whsm Scripts Sennosides/Docusate Sodium (Colace 2-in-1 Tablet) 1 Each Tablet 1 TAB PO QHS, #30 TAB 0 Refills Prov: MAXIMINO LEONE DO 04/12/20 Magnesium Citrate (MAGNESIUM CITRATE) 296 Ml Solution 296 ML PO ONCE PRN for CONSTIPATION, #296 ML Prov: MAXIMINO LEONE DO 04/12/20 Ondansetron (ONDANSETRON ODT) 4 Mg Tab.rapdis 1 TAB PO PRN Q6-8HRS PRN for VOMITING, #16 TAB Prov: MAXIMINO LEONE DO 04/12/20 MAXIMINO LEONE DO Apr 12, 2020 00:04
--- NOTE | 2020-04-12 01:17 | RAD ---
CT ABD PEL W/ORAL CONTRST ONLY INDICATION: Reason: abdominal pain, constipation, N/V, eval for obstruction EXAM: Noncontrast CT of the abdomen and pelvis. Coronal and sagittal reformatted images were performed. PQRS compliance statement: One or more of the following individualized dose reduction techniques were utilized for this examination: 1. Automated exposure control 2. Adjustment of the mA and/or kV according to patient size 3. Use of iterative reconstruction technique COMPARISON: None FINDINGS: No free air, free fluid, or fluid collection. Lower chest: The visualized lower lungs are aerated. No pleural or pericardial effusion. Cardiomegaly. Coronary artery atherosclerotic disease. ABDOMEN: Liver: The noncontrast liver is homogeneous in attenuation. Gallbladder and biliary: Normal gallbladder without radiopaque stone. Normal caliber bile ducts. Spleen: Normal spleen. Pancreas: The noncontrast pancreas is homogeneous in attenuation without peripancreatic inflammatory changes. Adrenal glands: Bilateral adrenal adenomas Kidneys and ureters: No opaque urinary calculi. Normal kidneys and ureters. GI tract: Ingested oral contrast reaches the mid ileum. No dilated loops of small bowel. Large colonic stool burden. Appendix is not seen. Vascular structures: Moderate aortoiliac atherosclerotic disease. Lymph nodes: No lymphadenopathy in the abdomen or pelvis. PELVIS: Genitourinary system: Normal bladder. SKELETAL STRUCTURES AND SOFT TISSUES: Degenerative changes of the spine. Symmetric gynecomastia. IMPRESSION: 1. Large colonic stool burden consistent with patient's history of constipation. 2. No dilated small bowel to suggest obstruction. Ingested oral contrast reaches the mid ileum. Electronically signed by: Baljinder Heath MD (04/12/2020 1:14 AM) [facility]
[2020-04-12 01:35] VITALS: BP 134/70
[2020-04-12] MEDS ORDERED: MAGN296S68 PO (01:58)
[2020-04-12] MEDS ORDERED: ONDA4TAB12 PO (01:58)
[2020-04-12] MEDS ORDERED: SENN-121 PO (01:58)
[2020-04-12 04:07] LABS: % BANDS 3 % (0-9); % LYMPHS 1 % (24-48); % MONOS 5 % (0-10); % SEGS 91 % (35-66); PLT ESTIMATE ADEQUATE (ADEQUATE)
== END 2020-04-12 02:08 | disposition home or self-care (01) ==
LOC: ER 23:06
DX: K59.00 Constipation, unspecified (principal); R11.10 Vomiting, unspecified; I10 Essential (primary) hypertension; E03.9 Hypothyroidism, unspecified; Z87.891 Personal history of nicotine dependence; Z88.8 Allergy status to other drugs, medicaments and biological substances
CPT/HCPCS: 36415; 74176; 80053; 81001; 83690; 83735; 85007; 85025; 96361; 96374; 96375; 99285; J1885; J2405; J3490; J7030; Q9966

== ENCOUNTER → 2020-09-22 | Outpatient (CLI) | payer MEDICARE, BC ==
[2020-07-31 15:00] VITALS: BP 145/74
[~2020-09-22] MED LIST changes: +CARB1TAB48 PO; -DUTA0.5C16 PO; +DUTA0.5C36 PO; +MAGN296S68 PO; +MELA10TA7 PO; +MULT-445 PO; +ONDA4TAB12 PO; +SENN-121 PO
--- NOTE | 2020-09-22 11:34 | RAD ---
Bilateral Duplex Carotid Ultrasound, 09/22/2020 Comparison: None available Indication: Syncope Procedure: Real-time, grayscale, color flow, duplex Doppler and spectral analysis off the carotid art eries is performed and images are obtained . Vertebral arteries were also imaged FINDINGS: Mild intimal thickening and atheromatous plaquing seen in both carotid arteries. Peak systolic velocities in cm/sec: Right side: CCA: 61.0 ICA: 53.0 ICA (End Diastolic Velocity): 14.0 ICA/CCA Ratio: 0.88 Left side: CCA: 69.0 ICA: 64.0 ICA (End Diastolic Velocity): 18.0 ICA/CCA Ratio: 1.3 Vertebral arteries are antegrade. IMPRESSION: 1. No hemodynamically significant stenosis of internal carotid arteries. PQRS Compliance Statement - Stenosis calculations for CT, MR and conventional angiography are based u maria luisa measurement of the distal ICA diameter in accordance with the NASCET methodology. Stenosis calcu lations for carotid ultrasound studies are derived from validated velocity criteria which are known t o correlate with the NASCET methodology. Electronically signed by: Elzbieta Ward MD (09/22/2020 11:32 AM) [id number]
== END ==
LOC: US 11:08
PROVIDERS: ATTEND Family Medicine
DX: R55 Syncope and collapse (principal)
CPT/HCPCS: 93880